=== PATIENT | male | born 1970 | race Caucasian/White ===

== ENCOUNTER 2024-07-02 12:50 | Emergency (ER) | payer MEDICAID, SELFPAY ==
[2024-07-02 12:51] VITALS: BP 148/84; PULSE 109; RESP 15; TEMP 36; O2SAT 99; BMI 23.6
--- NOTE | 2024-07-02 13:07 | VDLE_ITS ---
Reason For Study Reason For Study: Right leg swelling RIGHT LEFT GSV is normal. CFV is compressible, spontaneous, phasic, competent, CFV is compressible, spontaneous, phasic, competent and demonstrates normal augmentation. and demonstrates normal augmentation. FV is compressible, spontaneous, phasic, competent and demonstrates normal augmentation. POP V is compressible, spontaneous, phasic, competent and demonstrates normal augmentation. T/P Trunk is compressible. PTV is compressible. RT PerV is compressible. Procedure This is a venous duplex using B-mode, color flow and spectral Doppler. Exam performed in department. A preliminary report was called and/or faxed to Dr. Wilson. VL/Venous Duplex US, Unilateral Interpretation Summary Deep veins of the right lower extremity are patent and compressible segmentally . There is no evidence of right lower extremity deep vein thrombosis. Valvular competence appears intact within the p roximal deep venous system on the right . The right great saphenous vein appears patent and compressible segmentally. The left common femoral vein is patent and compressible . Ordering Physician: Henry Wilson Performed By: Collette Moyer RVT
--- NOTE | 2024-07-02 13:14 | ED.VIS.LOWEX ---
HPI History of Present Illness HPI Narrative: 54-year-old male history of some type of cardiac arrhythmia for which he is currently on no medications for. States that he has had atraumatic right lower leg swelling around the ankle and lower calf for about 4 days started on Friday. No prior history. No history of cellulitis. No fever or chills. No chest pain or shortness of breath. He has never had a DVT. No recent travel, surgery or immobilization. No recent hospitalization. Chief Complaint: Edema Informant: patient and spouse/S.O. Occured/Mechanism Mechanism/Context: No injury and No blunt trauma Onset/Context/Timing Onset: Days Context: Gradual Onset Timing: Continuous Quality of Pain: Dull Current Severity: Mild Maximum Severity: Mild Associated Symptoms Associated Symptoms: Negative for Parasthesia, Weakness or Loss of Funtion Narrative Narrative: 54-year-old male with atraumatic right lower leg pain and swelling for 4 days. No history of cellulitis. No prior history of DVT or PE risk factors. Prior similar symptoms: No Recent Illness/Hospitalization: No PFSH PFSH Medical History Arrhythmia Home Medications ?Medication ?Instructions ?Recorded ?Last Taken ?Type hydrocodone-acetaminophen 5-325mg 1 tab PO Q4H PRN PRN Pain ##20 11/19/13 Unknown Rx 5mg-325mg indomethacin 25 mg capsule 50 mg (2 x 25 mg) PO TIDCM ##20 11/19/13 Unknown Rx polyethylene glycol 3350 17 gram 17 g PO QHS #5 packets 01/03/14 Unknown Rx oral powder packet cephalexin 500 mg capsule 500 mg PO Q6 #40 CAPSULES 07/02/24 Unknown Rx Allergy/AdvReac Type Severity Reaction Status Date / Time No Known Allergies Allergy Verified 07/02/24 12:51 Social History Smoking Status: Current every day smoker tobacco type: cigarettes and e-cigarettes ROS ROS ED ROS Narrative Patient denies recent illness. Constitutional Constitutional ED: Denies chills or fever(s) Eyes Eyes: Denies blurry vision ENT ENT ED: Denies ear pain Cardiovascular Cardiovascular: Denies chest pain Respiratory/Chest Respiratory/Chest: Denies cough or dyspnea Gastrointestinal Gastrointestinal: Denies abdominal pain Genitourinary Genitourinary ED: Denies dysuria or hematuria Musculoskeletal Musculoskeletal: Denies arthralgias Integumentary Denies abscess or Abrasions Neurologic Neurologic: Denies headache(s) Psychiatric Psychiatric: Denies anxiety Endocrine Endocrinology: Denies polydipsia Hematologic/Lymphatic Hematologic/Lymphatic: Denies easy bleeding, easy bruising or lymphadenopathy Allergic/Immunologic Allergic/Immunologic ED: Denies mouth swelling, tongue swelling or urticaria EXAM Physical Exam Narrative Exam Narrative: Well-appearing middle-age male. Vital signs stable afebrile. No acute distress. Significant other present in the room. H EENT exam pupils round reactive light. Moist membranes. Neck nontender no lymphadenopathy. Lungs clear to auscultation bilaterally. Heart tachycardic 109 no murmur. Chest wall and ribs nontender. Abdomen soft nontender. Moving all 4 extremities. Right lower leg has mild edema at the distal half of the lower leg. Minimally tender. Really no significant redness. Only minimal warmth. Not classic for cellulitis. Normal DP pulse. Able to dorsi and plantarflexion bilaterally. Calf is nontender. There is no cords. There is no inguinal lymphadenopathy. There is no streaking or redness above the knee. Both lower extremities are neurovascularly intact. Neurologically she is awake and alert. Answering questions following commands. Const Vital Signs: 07/02/24 12:51 Temperature 96.8 F L Temperature Source Temporal Pulse Rate 109 H Respiratory Rate 15 Blood Pressure 148/84 H Blood Pressure Mean 105 Pulse Ox 99 Oxygen Delivery Method Room Air Positive well nourished and well developed; Negative for obese, cachectic, contractures or unkempt General Appearance ED: well developed; Negative for unkempt, cachectic or contractures Nutritional Appearance: Negative for cachectic or obese HEENT Reports moist mucous membranes normocephalic and atraumatic Eyes PERRL Neck full ROM and supple Chest Wall inspection of chest normal and palpation of chest normal Resp normal respiratory effort, no retractions and clear to auscultation bilaterally Auscultation: Negative for rales, rhonchi, wheezes or diminished lung sounds Cardio regular rhythm, S1 normal heart sound, S2 normal heart sound and no murmurs; Negative for regular rate Rate: tachycardic GI non-tender, non-distended and no masses Inspection: Negative for abdominal distention Auscultation: normoactive bowel sounds Palpation: soft; Negative for tender, guarding or rebound tenderness present Back/Spine no CVA tenderness General Back: Negative for CVA tenderness or swelling Cervical Spine: Negative for cervical spine tenderness Thoracic Spine / Upper Back: Negative for thoracic spinal tenderness Lumbar Spine / Lower Back: Negative for lumbar spinal tenderness Extremity full ROM; Negative for normal to inspection Extremity Narrative: Right lower extremity lower edema at the distal third of the lower leg ankle. Neurovascular intact. Not hot. Only minimally tender. No lymphangitic streaking. No inguinal lymphadenopathy. Looks more like edema than cellulitis. There is no calf tenderness or cord. Normal DP pulse. General Extremety ED: Yes edema; Negative for cyanosis General Extremity: edema; Negative for cyanosis Neuro oriented x3, CN's II-XII intact bilaterally, moves all extremities and no sensory deficits noted Sensorium / Orientation: alert, oriented to person, oriented to place and oriented to time; Negative for orientation impaired, confused, lethargic or stuporous Psych mental status grossly normal Appearance: Negative for unkempt Mood & Affect: Negative for anxious Skin no wounds Lesions: no lesions Rashes: no rashes Trauma: Negative for abrasion, laceration or puncture MDM MDM MDM Narrative Medical decision making narrative: 54-year-old male with atraumatic right lower leg swelling. Rule out DVT PE versus cellulitis versus venous insufficiency or other. Ultrasound and labs. I will do an EKG due to this history of dysrhythmia. Repeat exam patient is doing well at 2:51 PM. No change. We discussed his test results. This to be treated as a cellulitis. He will be given a dose of Keflex here. Placed on Keflex 5 mg 4 times daily for 10 days. Follow-up with his primary care physician. Return if worse. He and his are comfortable with the plan. History & Record Review Discussion w/independent historian: Patient Additional record(s) reviewed:: Prior inpatient record, Prior outpatient record, Prior ED visit and Prior labs Lab Data Attestation: I reviewed the patient's lab results. Lab results narrative: Venous ultrasound assay of the right lower extremity was negative. No DVT per the perinatal technician. CBC shows an elevated white count of 14.3. H&H 15 and 45. Platelets 403. Electrolytes unremarkable. Gap 10. Normal BUN of 14 creatinine 0.99. Glucose 109. Labs: Laboratory Results - last 24 hr 07/02/24 13:21 WBC 14.3 H RBC 5.28 Hgb 15.0 Hct 45.1 MCV 85.4 MCH 28.4 MCHC 33.3 RDW Std Deviation 42.3 RDW Coeff of Betsy 13.4 Plt Count 403 MPV 9.0 Immature Gran % (Auto) 0.300 Neut % (Auto) 78.9 H Lymph % (Auto) 11.5 L [place] % (Auto) 6.4 Eos % (Auto) 2.4 Baso % (Auto) 0.5 Absolute Neuts (auto) 11.3 H Absolute Lymphs (auto) 1.64 Nucleated RBC % 0 Sodium 138 Potassium 4.1 Chloride 102 Carbon Dioxide 26.0 Anion Gap 10 BUN 14 Creatinine 0.99 Estim Creat Clear Calc 89.10 Est GFR (MDRD) Non-Af 91 BUN/Creatinine Ratio 14.1 Glucose 109 H Calcium 9.7 Rhythm Strip Rhythm Strip: Sinus Rhythm Rate: 81 Ectopy: None EKG Initial EKG: Attestation: I personally reviewed and interpreted this EKG as follows: Interpretation: Sinus Rhythm and No Acute Injury Pattern Comments: Normal sinus rhythm rate 81. No acute signs of RI or ischemia. No change from prior. Discharge Plan Triage Chief Complaint: Edema ED Provider: Henry Wilson Dx/Rx/DC Orders Clinical Impression: Cellulitis Instructions: ED Cellulitis Prescriptions: New cephalexin 500 mg capsule 500 mg PO Q6 Qty: 40 0RF No Action hydrocodone-acetaminophen 1 TABLET tablet 1 tab PO Q4H PRN PRN (Reason: Pain) Qty: 20 0RF indomethacin 25 MG capsule 50 mg PO TIDCM Qty: 20 0RF polyethylene glycol 3350 17 GM powder in packet 17 g PO QHS Qty: 5 0RF Primary Care Provider: Care Physician,No Primary Referrals: Lul Dale MD [Med Staff - [employer] Agent] - As soon as possible Care Physician,No Primary [Primary Care Provider] - Activity Restrictions/Additional Instructions: There is no signs of a blood clot in your leg. This appears to be an infection of the skin called cellulitis. He will be started on antibiotic Keflex. 1 pill 4 times a day. Once you get it filled try to get 2 more dosages in today. Follow-up with your doctor if not improving return if a lot worse or you develop a fever if it spreads up your leg or you are feeling worse. Motrin and Tylenol for pain. Print Language: Estonian Disposition Disposition: Home, Self Care
--- NOTE | 2024-07-02 13:22 | EKG12_ITS ---
Test Reason : ARRYTH Blood Pressure : */* mmHG Vent. Rate : 81 BPM Atrial Rate : 81 BPM P-R Int : 120 ms QRS Dur : 100 ms QT Int : 358 ms P-R-T Axes : 78 81 65 degrees QTcB Int : 415 ms Normal sinus rhythm Normal ECG Confirmed by NELLA LOVE, LAM ([id number]), photo editor OLAMIDE BARTON ([id number]) on 07/05/2024 8:41:59 AM Referred By: Henry Wilson Confirmed By: LAM CARMEN MD
[2024-07-02 13:34] LABS: Absolute Lymphocyte Count 1.64 X10^3/uL (0.83-4.51); Absolute Neutrophil Count 11.3 X10^3/uL (2.0-7.7); Basophil# 0.07 X10^3/uL; Basophil% 0.5 % (0-1); Eosinophil# 0.34 X10^3/uL; Eosinophils% 2.4 % (0-5); Hematocrit 45.1 % (40-54); Lymphocyte # 1.64 X10^3/ul (0.83-4.51); Lymphocyte % 11.5 % (19-41); Mean Corp Hgb Conc 33.3 g/dL (32-36); Mean Corpuscular Hgb 28.4 pg (27.0-32.0); Mean Corpuscular Volume 85.4 fL (80-94); Monocyte# 0.92 X10^3/uL; Monocyte% 6.4 % (0-10); NRBC Flagged by Analyzer 0 % (0-5); Neutrophil # 11.26 X10^3/uL (2.7-7.7); Neutrophil % 78.9 % (47-70); Platelet Count 403 K/mm3 (150-450); RBC Distribution Width CV 13.4 % (11.6-14.6); RBC Distribution Width SD 42.3 fl (35.1-43.9); Red Blood Count 5.28 M/mm3 (4.6-6.2); White Blood Count 14.3 K/mm3 (4.4-11.0)
[2024-07-02 13:49] LABS: Anion Gap 10 (5-15); BUN 14 mg/dL (4-19); BUN/Creat Ratio 14.1 RATIO (10-20); Calcium,Total 9.7 mg/dL (7.6-11.0); Chloride 102 mmol/L (98-108); Creatinine, Serum 0.99 mg/dL (0.70-1.20); EST Glomerular Filtration Rate 91 (>60); Glucose 109 mg/dL (70-99); Potassium 4.1 mmol/L (3.3-5.1); Sodium Level 138 mmol/L (133-145)
[2024-07-02] MEDS: Cephalexin 250 MG Capsule 500 MG PO (15:11)
== END 2024-07-02 15:18 | disposition home or self-care (01) ==
PROVIDERS: Emergency Provider Emergency Medicine; Referring Provider Emergency Medicine; Visit Provider Emergency Medicine
DX: L03.115 Cellulitis of right lower limb (principal); F17.210 Nicotine dependence, cigarettes, uncomplicated; F17.290 Nicotine dependence, other tobacco product, uncomplicated; Z79.899 Other long term (current) drug therapy
CPT/HCPCS: 80048; 85025; 93005; 93971; 99283; A4216

== ENCOUNTER 2024-08-26 17:01 | Emergency (ER) | payer MEDICAID, SELFPAY ==
[2024-08-26 17:02] VITALS: BP 159/132; PULSE 119; RESP 16; TEMP 36.8; O2SAT 98; BMI 22.8
[2024-08-26 17:03] VITALS: BP 159/132; PULSE 110; RESP 16; TEMP 36.8; O2SAT 98
--- NOTE | 2024-08-26 18:00 | EX.ED.DYSGE1 ---
HPI History of Present Illness Chief Complaint: Cellulitis Informant: patient Onset/Context/Timing Onset: Weeks (1) Context: Gradual Onset Timing: Continuous Quality: Dull, sharp, burning Location: Right lower leg Worsened by: Weightbearing Relieved by: Nothing Narrative Narrative: Patient presents with redness and swelling to his right lower leg that has been getting worse over the past week. Patient describes the pain as dull, burning, and sharp. Patient states he has had cellulitis in the past. Patient states he was given a prescription for Keflex. Patient states that this cleared up his cellulitis. Patient states that it started to return again last week. Patient states his pain is worse with any weightbearing. Patient states nothing helps with it. Patient denies any fevers or chills. Patient denies any new trauma or injury. [facility] Medical History Arrhythmia Home Medications ?Medication ?Instructions ?Recorded ?Last Taken ?Type cephalexin 500 mg capsule 500 mg PO Q6 #40 CAPSULES 08/26/24 Unknown Rx Allergy/AdvReac Type Severity Reaction Status Date / Time No Known Allergies Allergy Verified 08/26/24 17:03 Social History Smoking Status: Current every day smoker tobacco type: cigarettes and e-cigarettes ROS ROS ED Constitutional Constitutional ED: Denies chills or fever(s) Eyes Eyes: Denies blurry vision or change in vision ENT ENT ED: Denies rhinorrhea or sore throat Cardiovascular Cardiovascular: Denies chest pain or palpitations Respiratory/Chest Respiratory/Chest: Denies cough or dyspnea Gastrointestinal Gastrointestinal: Denies nausea or vomiting Genitourinary Genitourinary ED: Denies dysuria or hematuria Musculoskeletal Musculoskeletal: Denies back pain or neck pain Integumentary Denies abscess or rash Neurologic Neurologic: Denies headache(s) or weakness Allergic/Immunologic Allergic/Immunologic ED: Denies mouth swelling or urticaria EXAM Physical Exam Const Vital Signs: 08/26/24 17:02 08/26/24 17:03 08/26/24 19:12 Temperature 98.3 F 98.3 F 98 F Temperature Source Oral Oral Oral Pulse Rate 119 H 110 H 76 Respiratory Rate 16 16 16 Blood Pressure 159/132 H 159/132 H 118/85 H Blood Pressure Mean 141 141 96 Pulse Ox 98 98 100 Oxygen Delivery Method Room Air Room Air Room Air 08/26/24 20:00 08/26/24 20:34 Temperature 98 F 98 F Temperature Source Oral Pulse Rate 67 70 Respiratory Rate 18 18 Blood Pressure 122/79 H 132/79 H Blood Pressure Mean 93 96 Pulse Ox 99 100 Oxygen Delivery Method Room Air Positive well nourished and well developed General Appearance ED: well developed and NAD HEENT Reports moist mucous membranes Neck supple and no JVD Neuro oriented x3, CN's II-XII intact bilaterally and no sensory deficits noted Sensorium / Orientation: alert Motor Exam: strength 5/5 throughout Psych mental status grossly normal Skin Skin Narrative: There is erythema and warmth over the right lower leg. There is no discharge or drainage. There are no vesicles or pustules. There is no evidence of any abscess. Pulses are equal bilaterally. Sensation was intact to light touch in all digits. Capillary refill was less than 2 seconds in all digits. There is good range of motion. MDM MDM MDM Narrative Medical decision making narrative: Patient was advised that this does not look like it is cellulitis again. Patient was given a dose of Ancef here. CBC will be obtained to assess for leukocytosis and anemia. Basic metabolic profile will be obtained to assess for electrolyte abnormality and renal function. Blood cultures will be obtained to assess for sepsis. Lab Data Attestation: I reviewed the patient's lab results. Lab results narrative: CBC was reviewed and was within normal limits. Basic metabolic profile was reviewed and was within normal limits. Labs: Laboratory Results - last 24 hr 08/26/24 19:00 WBC 9.4 RBC 5.47 Hgb 15.5 Hct 48.0 MCV 87.8 MCH 28.3 MCHC 32.3 RDW Std Deviation 43.5 RDW Coeff of Betsy 13.5 Plt Count 376 MPV 9.1 Immature Gran % (Auto) 0.300 Neut % (Auto) 73.2 H Lymph % (Auto) 15.1 L [place] % (Auto) 6.7 Eos % (Auto) 4.0 Baso % (Auto) 0.7 Absolute Neuts (auto) 6.9 Absolute Lymphs (auto) 1.43 Nucleated RBC % 0 Sodium 136 Potassium 4.0 Chloride 100 Carbon Dioxide 25.9 Anion Gap 11 BUN 12 Creatinine 0.96 Estim Creat Clear Calc 90.92 Est GFR (MDRD) Non-Af 95 BUN/Creatinine Ratio 13.0 Glucose 97 Calcium 9.9 Treatment and Re-Evaluation :: Patient was given a dose of Ancef here. Patient was advised of his findings. Patient was given a prescription for Keflex. Patient was instructed to follow-up with his primary care physician in 5 to 7 days. Patient was instructed to return if worse in any way. Patient understood and was agreeable with the plan. All questions were answered. Discharge Plan Triage Chief Complaint: Cellulitis ED Provider: Reyes Sewell Dx/Rx/DC Orders Clinical Impression: Cellulitis of right lower leg, Elevated blood pressure reading without diagnosis of hypertension Instructions: ED Cellulitis Prescriptions: New cephalexin 500 mg capsule 500 mg PO Q6 Qty: 40 0RF Primary Care Provider: Care Physician,No Primary Referrals: Tsering Garrido MD [Med Staff - Active Staff] - 5-7 Days Care Physician,No Primary [Primary Care Provider] - Print Language: [place] Islander Disposition Disposition: Home, Self Care
[2024-08-26 19:12] VITALS: BP 118/85; PULSE 76; RESP 16; TEMP 36.6; O2SAT 100
[2024-08-26 19:26] LABS: Anion Gap 11 (5-15); BUN 12 mg/dL (4-19); Calcium,Total 9.9 mg/dL (7.6-11.0); Carbon Dioxide 25.9 mmol/L (21.0-32.0); Chloride 100 mmol/L (98-108); Creatinine, Serum 0.96 mg/dL (0.70-1.20); EST Glomerular Filtration Rate 95 (>60); Estimated Creatinine Clearance 90.92 ml/min (50-250); Glucose 97 mg/dL (70-99); Sodium Level 136 mmol/L (133-145)
[2024-08-26 19:30] LABS: Absolute Lymphocyte Count 1.43 X10^3/uL (0.83-4.51); Absolute Neutrophil Count 6.9 X10^3/uL (2.0-7.7); Basophil# 0.07 X10^3/uL; Basophil% 0.7 % (0-1); Eosinophil# 0.38 X10^3/uL; Hemoglobin 15.5 g/dL (13.0-16.5); Lymphocyte # 1.43 X10^3/ul (0.83-4.51); Lymphocyte % 15.1 % (19-41); Mean Corp Hgb Conc 32.3 g/dL (32-36); Mean Corpuscular Hgb 28.3 pg (27.0-32.0); Mean Corpuscular Volume 87.8 fL (80-94); Mean Platelet Vol. 9.1 fl (6.2-12.0); Monocyte# 0.63 X10^3/uL; Monocyte% 6.7 % (0-10); NRBC Flagged by Analyzer 0 % (0-5); Neutrophil % 73.2 % (47-70); Platelet Count 376 K/mm3 (150-450); RBC Distribution Width CV 13.5 % (11.6-14.6); RBC Distribution Width SD 43.5 fl (35.1-43.9); Red Blood Count 5.47 M/mm3 (4.6-6.2); White Blood Count 9.4 K/mm3 (4.4-11.0)
[2024-08-26] MEDS: Cefazolin 1 GM/50 ML BAG IV (19:49)
[2024-08-26 20:00] VITALS: BP 122/79; PULSE 67; RESP 18; TEMP 36.6; O2SAT 99
[2024-08-26 20:34] VITALS: BP 132/79; PULSE 70; RESP 18; TEMP 36.6; O2SAT 100
== END 2024-08-26 20:53 | disposition home or self-care (01) ==
PROVIDERS: Emergency Provider Emergency Medicine; Visit Provider Emergency Medicine
DX: L03.115 Cellulitis of right lower limb (principal); R03.0 Elevated blood-pressure reading, without diagnosis of hypertension; F17.210 Nicotine dependence, cigarettes, uncomplicated
CPT/HCPCS: 80048; 85025; 87040; 96365; 99282

== ENCOUNTER → 2025-02-02 | Outpatient (CLI) | payer MEDICAID, SELFPAY ==
--- NOTE | 2025-02-02 12:56 | CT_ITS ---
PROCEDURE: LIMITED CHEST CT CARDIAC ONLY 02/02/2025 REASON FOR EXAM: CP on exertion. TECHNIQUE: Procedure Code: [id number] Modality: CT Procedure: LIMITED CHEST CT CARDIAC ONLY One or more dose reduction techniques were used (e.g., Automated exposure control, adjustment of the mA and/or kV according to patient size, use of iterative reconstruction technique). RADIATION DOSE SUMMARY: DLP: 1468.48 mGycm COMPARISON: None. CT/Limited Chest CT Cardiac Only IMPRESSION: Relatively severe pulmonary emphysema is noted. Limited imaging of the lungs demonstrates no acute process. No pleural effusion or pneumothorax is seen in visualized areas. No adenopathy is noted. The visualized upper abdomen demonstrates no significant abnormality. Reading Location: [place] [id number]
[2025-02-02 13:02] VITALS: BP 124/96; PULSE 90; RESP 16; O2SAT 97; BMI 23.6
[2025-02-02 13:12] VITALS: BP 119/85; PULSE 83
[2025-02-02 13:22] VITALS: PULSE 74
[2025-02-02] MEDS: Nitroglycerin SL (ED/IMG/CATH) 0.4 MG TABLET SL (13:22)
[2025-02-02 13:35] VITALS: BP 101/66; PULSE 73; RESP 16; O2SAT 94
--- OUTSIDE RECORDS SUMMARY | 2025-02-02 14:36 | XMS RPT_ITS | CCD ---
Author Organization [facility] Care Team Providers Care Wireless Sales Consultant Name Role Phone RODRIGUEZ, KENY DO Unavailable Unavailable RODRIGUEZ, KENY DO Unavailable Unavailable NO, DOCTOR ON Unavailable Unavailable RODRIGUEZ, KENY DO Unavailable Unavailable NO, DOCTOR ON Unavailable Unavailable RODRIGUEZ, KENY DO Unavailable Unavailable RODRIGUEZ, KENY DO Unavailable Unavailable NO, DOCTOR ON Unavailable Unavailable RODRIGUEZ, KENY DO Unavailable Unavailable NO, DOCTOR ON Unavailable Unavailable PIPO, GILBERT E Unavailable Unavailable PIPO, GILBERT E Unavailable Unavailable PIPO, GILBERT E Unavailable Unavailable NO, DOCTOR ON Unavailable Unavailable RUIZ, DENNYS C Unavailable Unavailable RUIZ, DENNYS C Unavailable Unavailable NO, DOCTOR ON Unavailable Unavailable RUIZ, DENNYS C Unavailable Unavailable NO, DOCTOR ON Unavailable Unavailable Unavailable Primary Care Provider Unavailabl e Care Physician, No Primary Primary Care Provider Unavailable Dr. Henry Wilson MD Referring Provider Dr. Henry Wilson MD Emergency Provider [phone] Dr. Henry Wilson MD Attending Provider Dr. Nicholas Huerta MD Attending Provider Dr. Reyes Sewell DO Emergency Provider SHAYY CLOTH CLASSER-TRAPEZE PERFORMER, BRIAN Primary Care Physician [phone] BALTES CLOTH CLASSER-TRAPEZE PERFORMER, BRIAN Attending Unavailabl e BALTES CLOTH CLASSER-TRAPEZE PERFORMER, BRIAN Primary Care Unavailabl e BALTES CLOTH CLASSER-TRAPEZE PERFORMER, BRIAN Attending Unavailabl e BALTES CLOTH CLASSER-TRAPEZE PERFORMER, BRIAN Primary Care Unavailabl e Care Physician, No Primary Primary Care Provider Unavailable Dr. Reyes Sewell DO Attending Provider Shayy FIRST LEVELER-C, Brian Primary Care Provider Shayy FIRST LEVELER-C, Brian Referring Provider [phone] Mateusz LOVE, Dr. Allen Attending Provider Brian Lucas Referring Unavailable Santos Avalos Attending Unavailable Baltes, Brian Primary Care Unavailable Baltes, Brian Referring Unavailable Baltes, Brian Primary Care Unavailable Mateusz, Tiffany Attending Unavailable Baltes, Brian Primary Care Unavailable Baltes, Brian Referring Unavailable Mateusz, Tiffany Attending Unavailable Henry Wilson Referring Unavailable Care Physician, No Primary Primary Care Unava ilable Henry Wilson Attending Unavailable Care Physician, No Primary Primary Care Unava ilable Reyes Sewell Attending Unavailable Mateusz, Tiffany Attending Unavailable Mateusz, Tiffany Referring Unavailable Baltes, Brian Primary Care Unavailable Baltes, Brian Primary Care Unavailable Mateusz, Tiffany Attending Unavailable Mateusz, Tiffany Referring Unavailable Medications Current Medications Medication Drug Class(es) Dates Sig (Normalized) Sig (Original) acetaminophen 500 mg oral tablet (3 sources) Start: 11-01-2024 take 2 tablets by mouth three times daily as needed for pain Acetaminophen 500 mg tablet Active 1000 mg PO 3 times daily as needed for fever or pain November 01, 2024 12:00am Start: 09-01-2024 acetaminophen 500 mg oral tablet Dose : 1,000 mg = 2 tab(s), Oral, TID, PRN pain or fever, 0 Refill(s) Start Date: 09/01/24 Status: Ordered Repeat number: 1 [id number] 200 actuat albuterol 0.09 mg/actuat metered dose inhaler (2 sources) beta2-Adrenergic Agonist Start: 11-16-2024 Albut harvinder Sulfate 90 mcg/actuation HFA aerosol inhaler Active 2 NMA INHALATION Q4H as needed November 16, 2024 10:09am Start: 11-16-2024 End: 11-16-2024 Albuterol Sulfate 90 mcg/act uation HFA aerosol inhaler Discontinued INHALATION November 16, 2024 12:00am November 16, 2024 10:10am aspirin 81 mg delayed release oral tablet (1 source) Platelet Aggregation Inhibitor, Nonsteroidal Anti-inflammatory Drug Start: 11-16-2024 Aspirin (Adult Lo w Dose Aspirin) 81 mg tablet,delayed release (DR/EC) Active 81 mg PO daily November 16, 2024 12:00am Budesonide-Formo terol (2 sources) Corticosteroid, beta2-Adrenergic Agonist Start: 11-16-2024 Budesonide-Form oterol (Symbicort) 160-4.5 mcg/actuation HFA aerosol inhaler Active 2 NMA INHALATION THREE TIMES A DAY November 16, 2024 10:10am Start: 11-16-2024 End: 11-16-2024 Budesonide-Formoterol (Symbi alexander) 160-4.5 mcg/actuation HFA aerosol inhaler Discontinued INHALATION November 16, 2024 12:00am November 16, 2024 10:10am doxycycline hyclate 100 mg oral tablet (1 source) Tetracycline-class Drug Start: 05-05-2023 End: 05-12-2023 take 1 tablet by mouth twice daily doxycycline (VIBRA-TABS) 100 mg tablet Take 1 tablet by mouth two times a day for 7 days. 14 tablet 0 05/05/2023 05/12/2023 Active Comment on above: Take 1 tablet by arnoldo th two times a day for 7 days. losartan potassium 25 mg oral tablet (1 source) Angiotensin 2 Receptor Mendez Start: 11-01-2024 take 1 tablet by mouth once daily Losartan 25 mg tablet Active 25 mg PO daily November 01, 2024 12:00am 24 hr metoprolol succinate 25 mg extended release oral tablet (1 source) beta-Adrenergic Mendez Start: 11-16-2024 take 1 tablet by mouth once daily Metoprolol Succinate 25 mg tablet extended release 24 hr Active 25 mg PO daily November 16, 2024 12:00am mupirocin 0.02 mg/mg topical ointment (1 source) RNA Synthetase Inhibitor Antibacterial Start: 05-05-2023 End: 05-12-2023 mupirocin (BACTROBAN) 2 % ointment Apply to affected area three times a day for 7 days. 22 g 0 05/05/2023 05/12/2023 Active Comment on above: Apply to affected ar ea three times a day for 7 days. naproxen sodium 220 mg oral tablet (1 source) Nonsteroidal Anti-inflammatory Drug Start: 11-01-2024 take 1 tablet by mouth every eight hours as needed for pain Naproxen Sodium 220 mg tablet Active 220 mg PO Q8H as needed for pain November 01, 2024 12:00am Completed/Discontinued Medications Medication Drug Class(es) Dates Sig (Normalized) Sig (Original) acetaminophen 325 mg / HYDROcodone bitartrate 5 mg oral tablet (3 sources) Opioid Agonist Start: 11-19-2013 End: 08-26-2024 Hydrocodone-Acetam inophen 1 TABLET tablet Discontinued 1 {tbl} PO EVERY 4 HOURS NEEDED as needed for Pain 20 November 19, 2013 12:00am August 26, 2024 7:14pm cephalexin 500 mg oral capsule (7 sources) Cephalosporin Antibacterial Start: 07-02-2024 End: 11-16-2024 cephalexin 500 mg oral capsule Dose : 500 mg = 1 cap(s), Oral, QID, # 40 cap(s), 0 Refill(s) Start Date: 09/01/24 Stop Date: 09/11/24 Status: Ordered Quantity: 40.0 Unit: cap(s) Repeat number: 1 ibuprofen 600 mg oral tablet (1 source) Nonsteroidal Anti-inflammatory Drug Start: 05-02-2014 take 1 tablet by mouth every six hours as needed ibuprofen (MOTRIN) 600 mg tablet Take 1 tablet by mouth every 6 hours as needed. FOR PAIN. 0 05/02/2014 Active Comment on above: Take 1 tablet by arnoldo th every 6 hours as needed. FOR PAIN. indomethacin 25 mg oral capsule (3 sources) Nonsteroidal Anti-inflammatory Drug Start: 11-19-2013 End: 08-26-2024 take 2 capsules by mouth three times daily at mealtime Indomethacin 25 MG capsule Discontinued 50 mg PO 3 TIMES DAILY WITH MEALS November 19, 2013 12:00am August 26, 2024 7:14pm meloxicam 15 mg oral tablet (1 source) Nonsteroidal Anti-inflammatory Drug Start: 05-02-2014 take 1 tablet by mouth once daily meloxicam (MOBIC) 15 mg tablet Take 1 tablet by mouth once daily. 30 tablet 2 05/02/2014 Active Comment on above: Take 1 tablet by arnoldo th once daily. polyethylene glycol 3350 81880 mg powder for oral solution (3 sources) Osmotic Laxative Start: 01-03-2014 End: 08-26-2024 take 17 g by mouth at bedtime Polyethylene Glycol 3350 17 GM powder in packet Discontinued 17 g PO AT BEDTIME January 03, 2014 12:00am August 26, 2024 7:14pm Problems Active Problems Problem Classification Problem Date Documented Da te Episodic/Chronic Cardiac dysrhythmias (2 sources) Cardiac arrhythmia; Translations: [Cardiac arrhythmia, unspecified] Onset: 11-16-2024 11-16-2024 Chronic Chronic obstructive pulmonary disease and bronchiectasis (4 sources) Moderate chronic obstructive pulmonary disease; Translations: [Chronic obstructive pulmonary disease, unspecified] Onset: 11-16-2024 11-01-2024 Chronic Congestive heart failure; nonhypertensive (2 sources) Heart failure with reduced ejection fraction; Translations: [Unspecified systolic (congestive) heart failure] Onset: 11-16-2024 11-01-2024 Chronic Nonspecific chest pain (4 sources) Chest pain on exertion; Translations: [Chest pain, unspecified] Onset: 11-16-2024 11-16-2024 Episodic Other and ill-defined heart disease (2 sources) Left ventricular systolic dysfunction; Translations: [Other ill-defined heart diseases] 11-16-2024 Chronic Other and ill-defined heart disease (2 sources) Other ill-defined heart diseases; Translations: [Other ill-defined heart diseases] Onset: 11-16-2024 Chronic Other circulatory disease (2 sources) Elevated blood-pressure reading without diagnosis of hypertension; Translations: [Elevated blood-pressure reading, without diagnosis of hypertension] 08-26-2024 Episodic Other ear and sense organ disorders (2 sources) Cellulitis of both external ears 09-01-2024 Episodic Comment on above: shraddha Other ear and sense organ disorders (1 source) Otitis externa; Translations: [Cellulitis of external ear, bilateral] 11-01-2024 Episodic Other nervous system disorders (1 source) Piriformis syndrome; Translations: [Lesion of sciatic nerve, unspecified lower limb] Onset: 05-02-2014 05-02-2014 Chronic Other skin disorders (1 source) Folliculitis; Translations: [Follicular disorder, unspecified] 05-05-2023 Episodic Substance-related disorders (3 sources) Nicotine dependence; Translations: [Nicotine dependence, unspecified, uncomplicated] Onset: 11-16-2024 11-16-2024 Chronic Past or Other Problems Problem Classification Problem Date Documented Da te Episodic/Chronic Other connective tissue disease (1 source) Other specified soft tissue disorders; Translations: [Other specified soft tissue disorders] Onset: 10-14-2024 Episodic Other non-traumatic joint disorders (1 source) Pain in right knee; Translations: [Pain in joint, lower leg] Onset: 05-02-2014 05-02-2014 Episodic Skin and subcutaneous tissue infections (6 sources) Cellulitis; Translations: [Cellulitis, unspecified] Onset: 10-14-2024 07-02-2024 Episodic Results Test Name Value Interpretation Reference Range Facility Cardiology Visit Reporton Cardiology Visit Report [facility] [address] [place] [address] OFFICE VISIT Date of Service: 11/16/24 MR#: [id number] Acct: [id number] Name: WENDI GRAHAM Rep #: [id number] : 1970 Provider: Dr. Tiffany Child MD Age/Sex: 54/M Location: [facility] Status: Signed HPI HPI History of Present Illness Details: This gentleman has past medical history significant for nicotine dependence and COPD. For the past couple of years, he has been experiencing anterior chest tightness with shortness of breath on moderate exertion. This is relieved with rest. No radiation to the arm neck or jaw. No rest symptoms. No diaphoresis. He recently has had a pharmacological stress test and for the symptoms. The stress test was reported as showing no ischemia however his LVEF was reported as 41% on gated images. Subsequently he has been referred to us for further evaluation and management. Denies orthopnea or PND. Occasional ankle edema. Per patient, he has been told in the past that he has had 2 heart attacks. No history of coronary angiography. Intake Vital Signs 08/26/24 17:02 11/16/24 10:06 Height 5 ft 10 in 5 ft 10 in Weight: 158 lb BMI 22.6 BP 113/70 Blood Pressure Location Lt brachial Position Sitting Respiration 18 Pulse 83 Pulse Source Monitor Intake Visit Reasons: HFrEF (Baltes) Director Business Required: No Accompanied by: Self Is patient in pain?: No Allergies No Known Allergies Allergy (Verified 08/26/24 17:03) Medications ???Medication ???Instructions ???Recorded ???Confirmed ???Type acetaminophen 500 mg tablet 1,000 mg PO 3XD PRN fever or pain 11/01/24 11/01/24 History losartan 25 mg tablet 25 mg PO QDAY 11/01/24 11/01/24 Hi story naproxen sodium 220 mg tablet 220 mg PO Q8H PRN pain 11/01/24 History albuterol sulfate 90 mcg/actuation 2 puff inhalation Q4H PRN 11/16/24 History aerosol inhaler budesonide-formoter ol HFA 160 2 inh inhalation TID 11/16/2405/11 History mcg-4.5 mcg/actuation aerosol inhaler (Symbicort) Ejection fraction %: 41 Have you fallen in the past year?: No PFSH Medical History (Updated 11/16/24 @ 10:[address] Tiffany Child MD) Cellulitis of external ear, bilateral Moderate COPD (chronic obstructive pulmonary disease) Heart failure with reduced ejection fraction Arrhythmia Family History (Updated 11/01/24 @ 12:11 by Milagros Mclaughlin LPN) Mother Alzheimer's dementia Melanoma of skin Grandmother COPD (chronic obstructive pulmonary disease) Father Colon cancer Social History (Updated 11/01/24 @ 12:08 by Milagros Mclaughlin LPN) Smoking Status: Light Smoker (<10/day) alcohol intake: former substance use type: former substance user, marijuana, crack/cocaine and amphetamines ROS Const Const: Positive for fatigue; Negative for weakness Eyes Eyes: Negative for change in vision ENT ENT: Negative for dizziness or balance problems Cardio Chest Pain: Yes Frequency: weekly Character: tightness Duration: minutes Palpitations: Yes feels like its: pounding Edema: Right (occ) Resp Respiratory: Positive for SOB with activity; Negative for SOB at rest or SOB orthopnea SOB lying down GI GI: Positive for heartburn (occ); Negative nausea Musc Musc: Negative for balance problems Neuro Neuro: Positive for lightheadedness (occ standing too fast); Negative for dizziness, near syncope, syncope or weakness Endo Endo: Positive for fatigue Cardiology Exam Const Appearance: comfortable and no acute distress Nutritional Appearance: well nourished Neck Neck: no JVD Carotids: Negative bruit Chest Auscultation: Bilateral: Diminished Lung Sounds Cardio Rate: regular rate Rhythm: regular rhythm Heart sounds: S1 normal and S2 normal Neuro General: patient alert, patient awake and patient oriented x3 Extremities Lower Extremity Edema: None: Bilateral Supplemental Info Supplemental Information Labs: No Data to Display Diagnostics: Electrocardiogram Abdomen/Pelvis CT Venous Doppler Study Pulmonary: No Data to Display Past Visits: Cardiology Visit 11/16/24 Assessment and Plan Assessment and Plan (1) Chest pain on exertion: Status: Chronic Plan: No ischemia reported on pharmacological stress test however ischemic heart disease remains a possibility. Discussed further evaluation with patient. Conventional coronary angiography versus CT angiography discussed. At this point in time, patient wishes to have coronary CT angio first. Will refer. Start enteric-coated aspirin 81 mg daily. Metoprolol extended release 25 mg daily. Check lipid panel. (2) Left ventricular systolic dysfunction (LVSD): Status: Acute Plan: LVEF reported at 41% on (more content not included)... Normal [facility] NM MYOCARDIAL SPECT STRESS/R ESTon 09-16-2024 NM MYOCARDIAL SPECT STRESS/REST ORIGINAL NM MYOCARDIAL SPECT STRESS/REST CLINICAL STATEMENT: Chest pain/anginal equiv, high CAD risk, not treadmill candidate TECHNIQUE: Lexiscan dose: 0.4 mg Radiopharmaceutical (stress): Tc-99m Sestamibi Dose:26.9 mCi Radiopharmaceutical (rest): Tc-99m Sestamibi Dose:8.3 mCi SPECT acquisition and processing Reconstruction and reorientation of SPECT images into short axis, vertical and horizontal long axis planes Quantitative LVEF assessment COMPARISON:No previous study REPORT: The overall quality of the study is poor. Review of raw imaging demonstrates no significant motion during stress and rest image acquisition. Low-dose CT scan demonstrates no significant thoracic aortic or coronary artery calcifications. No significant extracardiac finding. Review of the SPECT perfusion images shows decreased radiotracer uptake of the inferior wall, oval corrected and attenuation corrected images during both rest and stress images. Decreased radiotracer uptake of the inferior wall is worse in stress images. Gated SPECT images shows that the LEFT ventricle is normal in size but reduced systolic function. The LVEF is 41% . Mild global hypokinesia. Transient ischemic dilatation (TID) Ratio-1.12 IMPRESSION: Technically challenging study. Within limitation of the study, no significant scar or ischemia LEFT ventricular systolic function is reduced with mild global hypokinesia. Calculated LVEF 41%. No previous studies available for comparison. EKG portion will be dictated separately. Interpreted By: Camron Gerber MD Preliminary Report By: Ela Ashley Electronically Signed By: Camron Gerber MD Dictated Date: 09/16/2024 11:20:57 AM Prelim Date: 09/16/2024 11:28:00 AM Sign Date: 09/16/2024 1:39:38 PM Ordering Provider:Brian Baltes [facility] MAIN Culture, Blood (WB)on 2024 CUB Blood cultures x2, from two different sites No growth in 5 days. Normal [facility] Comment on above: Performed By: #### M 200.1000 #### [facility] [address] [place], [address] Absolute lymphocyte countOrd ered By: Reyes Sewell on 08-26-2024 Lymphocytes Auto (Unsp spec) [#/Vol] 1.43 10*3/uL 0.83-4.51 [facility] Absolute neutrophil countOrd ered By: Reyes Sewell on 08-26-2024 Neutrophils (Bld) [#/Vol] 6.9 10*3/uL 2.0-7.7 [facility] Anion gap in Serum or Plasma Ordered By: Reyes Sewell on 08-26-2024 Anion gap [Moles/Vol] 11 mmol/L 5-15 [facility] Automated blood erythrocyte countOrdered By: Reyes Sewell on 08-26-2024 RBC (Bld) [#/Vol] 5.47 10*6/uL Normal 4.6-6.2 [facility] Comment on above: Performed By: #### L 500.2500, L100.0100 #### [facility] [address] [place], [address] Automated blood hematocrit ( percentage)Ordered By: Reyes Sewell on 08-26-2024 Hematocrit (Bld) [Volume fraction] 48.0 % Normal 40-54 [facility] Comment on above: Performed By: #### L 500.2500, L100.0100 #### [facility] [address] [place], [address] Automated lymphocyte count a s percentage of total leukocytesOrdered By: Reyes Sewell on 08-26-2024 Lymphocytes/100 WBC Auto (Unsp spec) 15.1 % Low 19-41 [facility] BUN/creatinine ratioOrdered By: Reyes Sewell on 08-26-2024 Urea nitrogen/Creatinine [Mass ratio] 13.0 mg/mg 10-20 [facility] Basic Metabolic Profile (BMP )on 08-26-2024 BUN/CRE 13.0 RATIO Normal 10-20 [facility] Comment on above: Performed By: #### L 500.2500, L100.0100 #### [facility] [address] [place], [address] ECRCL 90.92 ml/min Normal 50-250 [facility] Comment on above: Performed By: #### L 500.2500, L100.0100 #### [facility] [address] [place], [address] GAP 11 Normal 5-15 [facility] Comment on above: Performed By: #### L 500.2500, L100.0100 #### [facility] [address] [place], [address] Potassium [Moles/Vol] 4.0 mmol/L Normal 3.3-5.1 [facility] Comment on above: Performed By: #### L 500.2500, L100.0100 #### [facility] [address] [place], [address] Basophil percentageOrdered B y: Reyes Sewell on 08-26-2024 Basophils/100 WBC (Bld) 0.7 % Normal 0-1 [facility] Comment on above: Performed By: #### L 500.2500, L100.0100 #### [facility] [address] [place], [address] Blood cultureOrdered By: Criss Sewell on 08-26-2024 Bacteria identified Cx Nom (Bld) No growth in 5 days. [facility] CBC W/Diff, Automatedon 08-15 Absolute Lymph 1.43 X10 3/uL Normal 0.83-4.51 [facility] Comment on above: Performed By: #### L 500.2500, L100.0100 #### [facility] [address] [place], [address] Absolute Neut 6.9 X10 3/uL Normal 2.0-7.7 [facility] Comment on above: Performed By: #### L 500.2500, L100.0100 #### [facility] [address] [place], [address] IG% 0.300 Normal 0.0-0.9 [facility] Comment on above: Result Comment: IG% - Immature Granulocytes (promyelocytes, myelocytes and metamyelocytes) > 1% indicates that a LEFT SHIFT is Present. Performed By: #### L 500.2500, L100.0100 #### [facility] [address] [place], [address] Lymphocytes/100 WBC (Bld) 15.1 % Low 19-41 [facility] Comment on above: Performed By: #### L 500.2500, L100.0100 #### [facility] [address] [place], [address] Nucleated RBC (Bld) [#/Vol] 0 10*3/uL Normal 0-5 [facility] Comment on above: Performed By: #### L 500.2500, L100.0100 #### [facility] [address] [place], [address] RDW SD 43.5 fl Normal 35.1-43.9 [facility] Comment on above: Performed By: #### L 500.2500, L100.0100 #### [facility] [address] [place], [address] Carbon dioxide, total [Moles /volume] in Central venous bloodOrdered By: Reyes Sewell on 08-26-2024 CO2 [Moles/Vol] 25.9 mmol/L Normal 21.0-32.0 [facility] Comment on above: Performed By: #### L 500.2500, L100.0100 #### [facility] [address] [place], [address] Chloride assayOrdered By: Rogelio Sewell on 08-26-2024 Chloride [Moles/Vol] 100 mmol/L Normal 98-108 [facility] Comment on above: Performed By: #### L 500.2500, L100.0100 #### [facility] [address] [place], [address] Emergency Department Summary on 08-26-2024 Emergency Department Summary [facility] Medical Records Department [address] [place] [address] Emergency Department Summary 08/26/24 MR#: [id number] Acct: [id number] Name: WENDI GRAHAM Rep #: [id number] : 1970 54 From: Reyes Sewell DO PCP: Care Physician,No Primary Status:DEP ER Location: ED HPI History of Present Illness Chief Complaint: Cellulitis Informant: patient Onset/Context/Joann santacruz Onset: Weeks (1) Context: Gradual Onset Timing: Continuous Quality: Dull, sharp, burning Location: Right lower leg Worsened by: Weightbearing Relieved by: Nothing Narrative Narrative: Patient presents with redness and swelling to his right lower leg that has been getting worse over the past week. Patient describes the pain as dull, burning, and sharp. Patient states he has had cellulitis in the past. Patient states he was given a prescription for Keflex. Patient states that this cleared up his cellulitis. Patient states that it started to return again last week. Patient states his pain is worse with any weightbearing. Patient states nothing helps with it. Patient denies any fevers or chills. Patient denies any new trauma or injury. [facility] Medical History Arrhythmia Home Medications ???Medication ???Instructions ???Recorded ???Last Taken ???Type cephalexin 500 mg capsule 500 mg PO Q6 #40 CAPSULES 08/26/24 Unknown Rx Allergy/AdvReac Type Severity Reaction Status Date / Time No Known Allergies Allergy Verified 08/26/24 17:03 Social History Smoking Status: Current every day smoker tobacco type: cigarettes and e-cigarettes ROS ROS ED Constitutional Constitutional ED: Denies chills or fever(s) Eyes Eyes: Denies blurry vision or change in vision ENT ENT ED: Denies rhinorrhea or sore throat Cardiovascular Cardiovascular: Denies chest pain or palpitations Respiratory/Chest Respiratory/Chest: Denies cough or dyspnea Gastrointestinal Gastrointestinal: Denies nausea or vomiting Genitourinary Genitourinary ED: Denies dysuria or hematuria Musculoskeletal Musculoskeletal: Denies back pain or neck pain Integumentary Denies abscess or rash Neurologic Neurologic: Denies headache(s) or weakness Allergic/Immunologi c Allergic/Immunologi c ED: Denies mouth swelling or urticaria EXAM Physical Exam Const Vital Signs: 08/26/24 17:02 08/26/24 17:03 08/26/24 19:12 Temperature 98.3 F 98.3 F 98 F Temperature Source Oral Oral Oral Pulse Rate 119 H 110 H 76 Respiratory Rate 16 16 16 Blood Pressure 159/132 H 159/132 H 118/85 H Blood Pressure Mean 141 141 96 Pulse Ox 98 98 100 Oxygen Delivery Method Room Air Room Air Room Air 08/26/24 20:00 08/26/24 20:34 Temperature 98 F 98 F Temperature Source Oral Pulse Rate 67 70 Respiratory Rate 18 18 Blood Pressure 122/79 H 132/79 H Blood Pressure Mean 93 96 Pulse Ox 99 100 Oxygen Delivery Method Room Air Positive well nourished and well developed General Appearance ED: well developed and NAD HEENT Reports moist mucous membranes Neck supple and no JVD Neuro oriented x3, CN's II-XII intact bilaterally and no sensory deficits noted Sensorium / Orientation: alert Motor Exam: strength 5/5 throughout Psych mental status grossly normal Skin Skin Narrative: There is erythema and warmth over the right lower leg. There is no discharge or drainage. There are no vesicles or pustules. There is no evidence of any abscess. Pulses are equal bilaterally. Sensation was intact to light touch in all digits. Capillary refill was less than 2 seconds in all digits. There is good range of motion. MDM MDM MDM Narrative Medical decision making narrative: Patient was advised that this does not look like it is cellulitis again. Patient was given a dose of Ancef here. CBC will be obtained to assess for leukocytosis and anemia. Basic metabolic profile will be obtained to assess for electrolyte abnormality and renal function. Blood cultures will be obtained to assess for sepsis. Lab Data Attestation: I reviewed the patient's lab results. Lab results narrative: CBC was reviewed and was within normal limits. Basic metabolic profile was reviewed and was within normal limits. Labs: Laboratory Results - last 24 hr 08/26/24 19:00 WBC 9.4 RBC 5.47 Hgb 15.5 Hct 48.0 MCV 87.8 MCH 28.3 MCHC 32.3 RDW Std Deviation 43.5 RDW Coeff of Betsy 13.5 Plt Count 376 MPV 9.1 Immature Gran % (Auto) 0.300 Neut % (Auto) 73.2 H Lymph % (Auto) 15.1 L [place] % (Auto) 6.7 Eos % (Auto) 4.0 Baso % (Auto) 0.7 Absolute Neuts (auto) 6.9 Absolute Lymphs (auto) 1.43 Nucleated RBC % 0 Sodium 136 (more content not included)... Normal [facility] Eosinophil percentageOrdered By: Reyes Sewell on 08-26-2024 Eosinophils/100 WBC (Bld) 4.0 % Normal 0-5 [facility] Comment on above: Performed By: #### L 500.2500, L100.0100 #### [facility] [address] [place], [address] Erythrocyte distribution wid th ratioOrdered By: Reyes Sewell on 08-26-2024 Erythrocyte distribution width (RBC) [Ratio] 13.5 % Normal 11.6-14.6 [facility] Comment on above: Performed By: #### L 500.2500, L100.0100 #### [facility] [address] [place], [address] Erythrocyte distribution wid th standard deviationOrdered By: Reyes Sewell on 08-26-2024 Erythrocyte distribution width (RBC) [Ratio] 43.5 fl 35.1-43.9 [facility] Glomerular filtration rate ( GFR) estimation/1.73 sq m using serum, plasma, or whole bOrdered By: Reyes Sewell on 08-26-2024 GFR/1.73 sq M.predicted among non-blacks MDRD (S/P/Bld) [Vol rate/Area] 95 mL/min/{1.73_m2} Normal >60 [facility] Comment on above: mL/min/1.73m2 CKD-EP I Creatinine Equation (2020) Result Comment: mL/m in/1.73m2 CKD-EPI Creatinine Equation (2020) Performed By: #### L 500.2500, L100.0100 #### [facility] [address] [place], [address] Hemoglobin measurementOrdere d By: Reyes Sewell on 08-26-2024 Hemoglobin (Bld) [Mass/Vol] 15.5 g/dL Normal 13.0-16.5 [facility] Comment on above: Performed By: #### L 500.2500, L100.0100 #### [facility] [address] [place], [address] Immature granulocytes/100 WB C Auto (Bld)Ordered By: Reyes Sewell on 08-26-2024 Immature granulocytes/100 WBC (Bld) 0.300 % 0.0-0.9 [facility] Comment on above: IG% - Immature Granu locytes (promyelocytes, myelocytes and metamyelocytes) > 1% indicates that a LEFT SHIFT is Present. MCV (mean corpuscular volume ) determinationOrdered By: Reyes Sewell on 08-26-2024 MCV (RBC) [Entitic vol] 87.8 fL Normal 80-94 [facility] Comment on above: Performed By: #### L 500.2500, L100.0100 #### [facility] [address] [place], [address] Mean corpuscular hemoglobin (MCH) determinationOrdered By: Reyes Sewell on 08-26-2024 MCH (RBC) [Entitic mass] 28.3 pg Normal 27.0-32.0 [facility] Comment on above: Performed By: #### L 500.2500, L100.0100 #### [facility] [address] [place], [address] Mean corpuscular hemoglobin concentration (MCHC) determinationOrdered By: Reyes Sewell on 08-26-2024 MCHC (RBC) [Mass/Vol] 32.3 g/dL Normal 32-36 [facility] Comment on above: Performed By: #### L 500.2500, L100.0100 #### [facility] [address] [place], [address] Mean platelet volume determi nationOrdered By: Reyes Sewell on 08-26-2024 Platelet mean volume (Bld) [Entitic vol] 9.1 fL Normal 6.2-12.0 [facility] Comment on above: Performed By: #### L 500.2500, L100.0100 #### [facility] [address] [place], [address] Monocyte percentageOrdered B y: Reyes Sewell on 08-26-2024 Monocytes/100 WBC (Bld) 6.7 % Normal 0-10 [facility] Comment on above: Performed By: #### L 500.2500, L100.0100 #### [facility] [address] [place], [address] Neutrophil percentageOrdered By: Reyes Sewell on 08-26-2024 Neutrophils/100 WBC (Bld) 73.2 % High 47-70 [facility] Comment on above: Performed By: #### L 500.2500, L100.0100 #### [facility] [address] [place], [address] Nucleated red blood cell per centageOrdered By: Reyes Sewell on 08-26-2024 Nucleated RBC/100 WBC (Bld) [Ratio] 0 % 0-5 [facility] Platelet countOrdered By: Rogelio Sewell on 08-26-2024 Platelets (Bld) [#/Vol] 376 10*3/uL Normal 150-450 [facility] Comment on above: Performed By: #### L 500.2500, L100.0100 #### [facility] [address] [place], [address] Potassium measurement (mass/ volume)Ordered By: Reyes Sewell on 08-26-2024 Potassium (Unsp spec) [Mass/Vol] 4.0 mmol/L 3.3-5.1 [facility] Serum creatinine measurement (mass/volume)Ordered By: Reyes Sewell on 08-26-2024 Creatinine [Mass/Vol] 0.96 mg/dL Normal 0.70-1.20 [facility] Comment on above: Performed By: #### L 500.2500, L100.0100 #### [facility] [address] [place], [address] Serum glucose measurement (m ass/volume)Ordered By: Reyes Sewell on 08-26-2024 Glucose [Mass/Vol] 97 mg/dL Normal 70-99 [facility] Comment on above: Performed By: #### L 500.2500, L100.0100 #### [facility] [address] [place], [address] Serum or plasma calcium heather urement (mass/volume)Ordered By: Reyes Sewell on 08-26-2024 Calcium [Mass/Vol] 9.9 mg/dL Normal 7.6-11.0 [facility] Comment on above: Performed By: #### L 500.2500, L100.0100 #### [facility] [address] [place], [address] Serum or plasma urea nitroge n measurement (mass/volume)Ordered By: Reyes Sewell on 08-26-2024 Urea nitrogen [Mass/Vol] 12 mg/dL Normal 4-19 [facility] Comment on above: Performed By: #### L 500.2500, L100.0100 #### [facility] [address] [place], [address] Sodium levelOrdered By: Reyes Sewell on 08-26-2024 Sodium [Moles/Vol] 136 mmol/L Normal 133-145 [facility] Comment on above: Performed By: #### L 500.2500, L100.0100 #### [facility] [address] [place], [address] White blood cell (WBC) count Ordered By: Reyes Sewell on 08-26-2024 WBC (Bld) [#/Vol] 9.4 10*3/uL Normal 4.4-11.0 [facility] Comment on above: Performed By: #### L 500.2500, L100.0100 #### [facility] [address] [place], [address] 12 Lead EKGon 07-02-2024 12 Lead EKG [facility] [address] [place] [address] 12 Lead EKG 07/02/24 1350 MR#: [id number] Acct: [id number] Name: WENDI GRAHAM Rep #: [id number] : 1970 54 From: Efraín Bhakta MD Attending Dr: Status: DEP ER Ordering Dr: Henry Wilson MD Date: 07/02/24 Location: ED Sex: M C Admitted: Test Reason : ARRYTH Blood Pressure : */* mmHG Vent. Rate : 81 BPM Atrial Rate : 81 BPM P-R Int : 120 ms QRS Dur : 100 ms QT Int : 358 ms P-R-T Axes : 78 81 65 degrees QTcB Int : 415 ms Normal sinus rhythm Normal ECG Confirmed by NELLA LOVE, EFRAÍN ([id number]), dictionary editor OLAMIDE BARTON ([id number]) on 07/05/2024 8:41:59 AM Referred By: Henry Wilson Confirmed By: EFRAÍN BHAKTA MD 07/05/24 0842 Date Efraín Bhakta MD CC: Dr. Henry Wilson MD; No Primary Care Physician Signed Normal [facility] Absolute lymphocyte countOrd ered By: Henry Wilson on 07-02-2024 Lymphocytes Auto (Unsp spec) [#/Vol] 1.64 10*3/uL 0.83-4.51 [facility] Absolute neutrophil countOrd ered By: Henry Wilson on 07-02-2024 Neutrophils (Bld) [#/Vol] 11.3 10*3/uL High 2.0-7.7 [facility] Anion gap in Serum or Plasma Ordered By: Henry Wilson on 07-02-2024 Anion gap [Moles/Vol] 10 mmol/L 5-15 [facility] Automated lymphocyte count a s percentage of total leukocytesOrdered By: Henry Wilson on 07-02-2024 Lymphocytes/100 WBC Auto (Unsp spec) 11.5 % Low 19-41 [facility] BUN/creatinine ratioOrdered By: Henry Wilson on 07-02-2024 Urea nitrogen/Creatinine [Mass ratio] 14.1 mg/mg - [facility] Basic Metabolic Profile (BMP )on 07-02-2024 BUN/CRE 14.1 RATIO Normal - [facility] Comment on above: Performed By: #### L 100.0100, L500.2500 #### [facility] [address] [place], [address] Calcium [Mass/Vol] 9.7 mg/dL Normal 7.6-11.0 [facility] Comment on above: Performed By: #### L 100.0100, L500.2500 #### [facility] [address] [place], [address] Chloride [Moles/Vol] 102 mmol/L Normal 98-108 [facility] Comment on above: Performed By: #### L 100.0100, L500.2500 #### [facility] [address] [place], [address] CO2 [Moles/Vol] 26.0 mmol/L Normal 21.0-32.0 [facility] Comment on above: Performed By: #### L 100.0100, L500.2500 #### [facility] [address] [place], [address] Creatinine [Mass/Vol] 0.99 mg/dL Normal 0.70-1.20 [facility] Comment on above: Performed By: #### L 100.0100, L500.2500 #### [facility] [address] [place], [address] ECRCL 89.10 ml/min Normal 50-250 [facility] Comment on above: Performed By: #### L 100.0100, L500.2500 #### [facility] [address] [place], [address] GAP 10 Normal 5-15 [facility] Comment on above: Performed By: #### L 100.0100, L500.2500 #### [facility] [address] [place], [address] GFR/1.73 sq M.predicted among non-blacks MDRD (S/P/Bld) [Vol rate/Area] 91 mL/min/{1.73_m2} Normal >60 [facility] Comment on above: Result Comment: mL/m in/1.73m2 CKD-EPI Creatinine Equation (2020) Performed By: #### L 100.0100, L500.2500 #### [facility] [address] [place], [address] Glucose [Mass/Vol] 109 mg/dL High 70-99 [facility] Comment on above: Performed By: #### L 100.0100, L500.2500 #### [facility] [address] [place], [address] Potassium [Moles/Vol] 4.1 mmol/L Normal 3.3-5.1 [facility] Comment on above: Performed By: #### L 100.0100, L500.2500 #### [facility] [address] [place], [address] Sodium [Moles/Vol] 138 mmol/L Normal 133-145 [facility] Comment on above: Performed By: #### L 100.0100, L500.2500 #### [facility] [address] [place], [address] Urea nitrogen [Mass/Vol] 14 mg/dL Normal 4-19 [facility] Comment on above: Performed By: #### L 100.0100, L500.2500 #### [facility] [address] [place], [address] Basophil percentageOrdered B y: Henry Wilson on 07-02-2024 Basophils/100 WBC (Bld) 0.5 % 0-1 [facility] CBC W/Diff, Automatedon 06-15 Absolute Lymph 1.64 X10 3/uL Normal 0.83-4.51 [facility] Comment on above: Performed By: #### L 100.0100, L500.2500 #### [facility] [address] [place], [address] Absolute Neut 11.3 X10 3/uL High 2.0-7.7 [facility] Comment on above: Performed By: #### L 100.0100, L500.2500 #### [facility] [address] [place], [address] Basophils/100 WBC (Bld) 0.5 % Normal 0-1 [facility] Comment on above: Performed By: #### L 100.0100, L500.2500 #### [facility] [address] [place], [address] Eosinophils/100 WBC (Bld) 2.4 % Normal 0-5 [facility] Comment on above: Performed By: #### L 100.0100, L500.2500 #### [facility] [address] [place], [address] Erythrocyte distribution width (RBC) [Ratio] 13.4 % Normal 11.6-14.6 [facility] Comment on above: Performed By: #### L 100.0100, L500.2500 #### [facility] [address] [place], [address] Hematocrit (Bld) [Volume fraction] 45.1 % Normal 40-54 [facility] Comment on above: Performed By: #### L 100.0100, L500.2500 #### [facility] [address] [place], [address] Hemoglobin (Bld) [Mass/Vol] 15.0 g/dL Normal 13.0-16.5 [facility] Comment on above: Performed By: #### L 100.0100, L500.2500 #### [facility] [address] [place], [address] IG% 0.300 Normal 0.0-0.9 [facility] Comment on above: Result Comment: IG% - Immature Granulocytes (promyelocytes, myelocytes and metamyelocytes) > 1% indicates that a LEFT SHIFT is Present. Performed By: #### L 100.0100, L500.2500 #### [facility] [address] [place], [address] Lymphocytes/100 WBC (Bld) 11.5 % Low 19-41 [facility] Comment on above: Performed By: #### L 100.0100, L500.2500 #### [facility] [address] [place], [address] MCH (RBC) [Entitic mass] 28.4 pg Normal 27.0-32.0 [facility] Comment on above: Performed By: #### L 100.0100, L500.2500 #### [facility] [address] [place], [address] MCHC (RBC) [Mass/Vol] 33.3 g/dL Normal 32-36 [facility] Comment on above: Performed By: #### L 100.0100, L500.2500 #### [facility] [address] [place], [address] MCV (RBC) [Entitic vol] 85.4 fL Normal 80-94 [facility] Comment on above: Performed By: #### L 100.0100, L500.2500 #### [facility] [address] [place], [address] Monocytes/100 WBC (Bld) 6.4 % Normal 0-10 [facility] Comment on above: Performed By: #### L 100.0100, L500.2500 #### [facility] [address] [place], [address] Neutrophils/100 WBC (Bld) 78.9 % High 47-70 [facility] Comment on above: Performed By: #### L 100.0100, L500.2500 #### [facility] [address] [place], [address] Nucleated RBC (Bld) [#/Vol] 0 10*3/uL Normal 0-5 [facility] Comment on above: Performed By: #### L 100.0100, L500.2500 #### [facility] [address] [place], [address] Platelet mean volume (Bld) [Entitic vol] 9.0 fL Normal 6.2-12.0 [facility] Comment on above: Performed By: #### L 100.0100, L500.2500 #### [facility] [address] [place], [address] Platelets (Bld) [#/Vol] 403 10*3/uL Normal 150-450 [facility] Comment on above: Performed By: #### L 100.0100, L500.2500 #### [facility] [address] [place], [address] RBC (Bld) [#/Vol] 5.28 10*6/uL Normal 4.6-6.2 [facility] Comment on above: Performed By: #### L 100.0100, L500.2500 #### [facility] [address] [place], [address] RDW SD 42.3 fl Normal 35.1-43.9 [facility] Comment on above: Performed By: #### L 100.0100, L500.2500 #### [facility] [address] [place], [address] WBC (Bld) [#/Vol] 14.3 10*3/uL High 4.4-11.0 [facility] Comment on above: Performed By: #### L 100.0100, L500.2500 #### [facility] [address] [place], [address] Carbon dioxide, total [Moles /volume] in Central venous bloodOrdered By: Henry Wilson on 07-02-2024 CO2 [Moles/Vol] 26.0 mmol/L 21.0-32.0 [facility] Chloride assayOrdered By: Leopoldo Wilson on 07-02-2024 Chloride [Moles/Vol] 102 mmol/L 98-108 [facility] Emergency Department Summary on 07-02-2024 Emergency Department Summary [facility] Medical Records Department [address] [place] [address] Emergency Department Summary 07/02/24 MR#: [id number] Acct: [id number] Name: WENDI GRAHAM Rep #: [id number] : 1970 54 From: Henry Wilson MD PCP: Care Physician,No Primary Status:REG ER Location: ED HPI History of Present Illness HPI Narrative: 54-year-old male history of some type of cardiac arrhythmia for which he is currently on no medications for. States that he has had atraumatic right lower leg swelling around the ankle and lower calf for about 4 days started on Friday. No prior history. No history of cellulitis. No fever or chills. No chest pain or shortness of breath. He has never had a DVT. No recent travel, surgery or immobilization. No recent hospitalization. Chief Complaint: Edema Informant: patient and spouse/S.O. Occured/Mechanism Mechanism/Context: No injury and No blunt trauma Onset/Context/Timin g Onset: Days Context: Gradual Onset Timing: Continuous Quality of Pain: Dull Current Severity: Mild Maximum Severity: Mild Associated Symptoms Associated Symptoms: Negative for Parasthesia, Weakness or Loss of Funtion Narrative Narrative: 54-year-old male with atraumatic right lower leg pain and swelling for 4 days. No history of cellulitis. No prior history of DVT or PE risk factors. Prior similar symptoms: No Recent Illness/Hospitaliza tion: No PFSH PFS Medical History Arrhythmia Home Medications ???Medication ???Instructions ???Recorded ???Last Taken ???Type hydrocodone-acetami nophen 5-325mg 1 tab PO Q4H PRN PRN Pain ##20 Unknown Rx 5mg-325mg indomethacin 25 mg capsule 50 mg (2 x 25 mg) PO TIDCM ##20 Unknown Rx polyethylene glycol 3350 17 gram 17 g PO QHS #5 packets 01/03/14 Un known Rx oral powder packet cephalexin 500 mg capsule 500 mg PO Q6 #40 CAPSULES 07/02/24 Unknown Rx Allergy/AdvReac Type Severity Reaction Status Date / Time No Known Allergies Allergy Verified 07/02/24 12:51 Social History Smoking Status: Current every day smoker tobacco type: cigarettes and e-cigarettes ROS ROS ED ROS Narrative Patient denies recent illness. Constitutional Constitutional ED: Denies chills or fever(s) Eyes Eyes: Denies blurry vision ENT ENT ED: Denies ear pain Cardiovascular Cardiovascular: Denies chest pain Respiratory/Chest Respiratory/Chest: Denies cough or dyspnea Gastrointestinal Gastrointestinal: Denies abdominal pain Genitourinary Genitourinary ED: Denies dysuria or hematuria Musculoskeletal Musculoskeletal: Denies arthralgias Integumentary Denies abscess or Abrasions Neurologic Neurologic: Denies headache(s) Psychiatric Psychiatric: Denies anxiety Endocrine Endocrinology: Denies polydipsia Hematologic/Lymphat ic Hematologic/Lymphat ic: Denies easy bleeding, easy bruising or lymphadenopathy Allergic/Immunologi c Allergic/Immunologi c ED: Denies mouth swelling, tongue swelling or urticaria EXAM Physical Exam Narrative Exam Narrative: Well-appearing middle-age male. Vital signs stable afebrile. No acute distress. Significant other present in the room. H EENT exam pupils round reactive light. Moist membranes. Neck nontender no lymphadenopathy. Lungs clear to auscultation bilaterally. Heart tachycardic 109 no murmur. Chest wall and ribs nontender. Abdomen soft nontender. Moving all 4 extremities. Right lower leg has mild edema at the distal half of the lower leg. Minimally tender. Really no significant redness. Only minimal warmth. Not classic for cellulitis. Normal DP pulse. Able to dorsi and plantarflexion bilaterally. Calf is nontender. There is no cords. There is no inguinal lymphadenopathy. There is no streaking or redness above the knee. Both lower extremities are neurovascularly intact. Neurologically she is awake and alert. Answering questions following commands. Const Vital Signs: 07/02/24 12:51 Temperature 96.8 F L Temperature Source Temporal Pulse Rate 109 H Respiratory Rate 15 Blood Pressure 148/84 H Blood Pressure Mean 105 Pulse Ox 99 Oxygen Delivery Method Room Air Positive well nourished and well developed; Negative for obese, cachectic, contractures or unkempt General Appearance ED: well developed; Negative for unkempt, cachectic or contractures Nutritional Appearance: Negative for cachectic or obese HEENT Reports moist mucous membranes normocephalic and atraumatic Eyes PERRL Neck full ROM and supple Chest Wall inspection of chest normal and palpation of chest normal Resp normal respiratory effort, no retractions and clear to auscultation bilaterally Auscultation: Negative for rales, rhonchi, wheezes o (more content not included)... Normal [facility] Eosinophil percentageOrdered By: Henry Wilson on 07-02-2024 Eosinophils/100 WBC (Bld) 2.4 % 0-5 [facility] Erythrocyte distribution wid th (RBC) [Ratio]Ordered By: Henry Wilson on 07-02-2024 Erythrocyte distribution width (RBC) [Entitic vol] 42.3 fL 35.1-43.9 [facility] Erythrocyte distribution wid th ratioOrdered By: Henry Wilson on 07-02-2024 Erythrocyte distribution width (RBC) [Ratio] 13.4 % 11.6-14.6 [facility] Erythrocyte distribution wid th standard deviationOrdered By: Henry Wilson on 07-02-2024 Erythrocyte distribution width (RBC) [Ratio] 42.3 fl 35.1-43.9 [facility] Estimation of creatinine sharifa aranceOrdered By: Henry Wilson on 07-02-2024 Estimated Creatinine Clearance Calc 89.10 ml/min 50-250 [facility] GFR/1.73 sq M.predicted stacey g non-blacks MDRD (S/P/Bld) [Vol rate/Area]Ordered By: Henry Wilson on 07-02-2024 Estimated GFR (MDRD) Non-Af Amer 91 >60 [facility] Comment on above: mL/min/1.73m2 CKD-EP I Creatinine Equation (2020) Glomerular filtration rate ( GFR) estimation/1.73 sq m using serum, plasma, or whole bOrdered By: Henry Wilson on 07-02-2024 GFR/1.73 sq M.predicted among non-blacks MDRD (S/P/Bld) [Vol rate/Area] 91 mL/min/{1.73_m2} >60 [facility] Comment on above: mL/min/1.73m2 CKD-EP I Creatinine Equation (2020) Hematocrit Auto (Bld) [Volum e fraction]Ordered By: Henry Wilson on 07-02-2024 Hematocrit (Bld) [Volume fraction] 45.1 % 40-54 [facility] Hemoglobin measurementOrdere d By: Henry Wilson on 07-02-2024 Hemoglobin (Bld) [Mass/Vol] 15.0 g/dL 13.0-16.5 [facility] Immature granulocytes/100 WB C Auto (Bld)Ordered By: Henry Wilson on 07-02-2024 Immature granulocytes/100 WBC (Bld) 0.300 % 0.0-0.9 [facility] Comment on above: IG% - Immature Granu locytes (promyelocytes, myelocytes and metamyelocytes) > 1% indicates that a LEFT SHIFT is Present. Lymphocytes Auto (Unsp spec) [#/Vol]Ordered By: Henry Wilson on 07-02-2024 Lymphocytes (Bld) [#/Vol] 1.64 10*3/uL 0.83-4.5 1 [facility] Lymphocytes/100 WBC Auto (Un sp spec)Ordered By: Henry Wilson on 07-02-2024 Lymphocytes/100 WBC (Bld) 11.5 % Low 19-41 [facility] MCV (mean corpuscular volume ) determinationOrdered By: Henry Wilson on 07-02-2024 MCV (RBC) [Entitic vol] 85.4 fL 80-94 [facility] Mean corpuscular hemoglobin (MCH) determinationOrdered By: Henry Wilson on 07-02-2024 MCH (RBC) [Entitic mass] 28.4 pg 27.0-32.0 [facility] Mean corpuscular hemoglobin concentration (MCHC) determinationOrdered By: Henry Wilson on 07-02-2024 MCHC (RBC) [Mass/Vol] 33.3 g/dL 32-36 [facility] Mean platelet volume determi nationOrdered By: Henry Wilson on 07-02-2024 Platelet mean volume (Bld) [Entitic vol] 9.0 fL 6.2-12.0 [facility] Monocyte percentageOrdered B y: Henry Wilson on 07-02-2024 Monocytes/100 WBC (Bld) 6.4 % 0-10 [facility] Neutrophil percentageOrdered By: Henry Wilson on 07-02-2024 Neutrophils/100 WBC (Bld) 78.9 % High 47-70 [facility] Nucleated red blood cell per centageOrdered By: Henry Wilsno on 07-02-2024 Nucleated RBC/100 WBC (Bld) [Ratio] 0 % 0-5 [facility] Platelet countOrdered By: Leopoldo Wilson on 07-02-2024 Platelets (Bld) [#/Vol] 403 10*3/uL 150-450 [facility] Potassium (Unsp spec) [Mass/ Vol]Ordered By: Henry Wilson on 07-02-2024 Potassium [Moles/Vol] 4.1 mmol/L 3.3-5.1 [facility] Potassium measurement (mass/ volume)Ordered By: Henry Wilson on 07-02-2024 Potassium (Unsp spec) [Mass/Vol] 4.1 mmol/L 3.3-5.1 [facility] RBC Auto (Bld) [#/Vol]Ordere d By: Henry Wilson on 07-02-2024 RBC (Bld) [#/Vol] 5.28 10*6/uL 4.6-6.2 [facility] Serum creatinine measurement (mass/volume)Ordered By: Henry Wilson on 07-02-2024 Creatinine [Mass/Vol] 0.99 mg/dL 0.70-1.20 [facility] Serum glucose measurement (m ass/volume)Ordered By: Henry Wilson on 07-02-2024 Glucose [Mass/Vol] 109 mg/dL High 70-99 [facility] Serum or plasma calcium heather urement (mass/volume)Ordered By: Henry Wilson on 07-02-2024 Calcium [Mass/Vol] 9.7 mg/dL 7.6-11.0 [facility] Serum or plasma urea nitroge n measurement (mass/volume)Ordered By: Henry Wilson on 07-02-2024 Urea nitrogen [Mass/Vol] 14 mg/dL 4-19 [facility] Sodium levelOrdered By: Henry Wilson on 07-02-2024 Sodium [Moles/Vol] 138 mmol/L 133-145 [facility] Venous Duplex US, Unilateral on 07-02-2024 Venous Duplex US, Unilateral [facility] [address] [place] [address] Venous Duplex US, Unilateral 07/02/24 1320 MR#: [id number] Acct: [id number] Name: WENDI GRAHAM Rep #: [id number] : 1970 54 From: Nicholas Huerta MD Attending Dr: Status: DEP ER Ordering Dr: Henry Wilson MD Date: 07/02/24 Location: ED Sex: M C Admitted: Reason For Study Reason For Study: Right leg swelling RIGHT LEFT GSV is normal. CFV is compressible, spontaneous, phasic, competent, CFV is compressible, spontaneous, phasic, competent and demonstrates normal augmentation. and demonstrates normal augmentation. FV is compressible, spontaneous, phasic, competent and demonstrates normal augmentation. POP V is compressible, spontaneous, phasic, competent and demonstrates normal augmentation. T/P Trunk is compressible. PTV is compressible. RT PerV is compressible. Procedure This is a venous duplex using B-mode, color flow and spectral Doppler. Exam performed in department. A preliminary report was called and/or faxed to Dr. Wilson. VL/Venous Duplex US, Unilateral Interpretation Summary Deep veins of the right lower extremity are patent and compressible segmentally. There is no evidence of right lower extremity deep vein thrombosis. Valvular competence appears intact within the proximal deep venous system on the right . The right great saphenous vein appears patent and compressible segmentally. The left common femoral vein is patent and compressible . __ Ordering Physician: Henry Wilson Performed By: Collette Moyer RVT 07/02/242011 Date Nicholas Huerta MD CC: Dr. 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 Normal [facility] White blood cell (WBC) count Ordered By: Henry Wilson on 07-02-2024 WBC (Bld) [#/Vol] 14.3 10*3/uL High 4.4-11.0 [facility] CNOVon 05-05-2023 CNOV Office Visit (UCWSTR) ---- Aaron GRAHAM ([id number]) 1970 M Date Time Provider Department 05/05/23 10:00 AM [facility] During your visit today, we recorded the following information about you: Temperature Pulse Respiration Blood pressure 97.6 degrees 116/minute 16/minute 110/80 Weight 80.6 kg Freddy Henry PA-C 05/05/2023 10:38 AM Signed This note was created using [employer]. Kiersten Graham is a 53 year old male. HPI Presents with a chief complaint of sores on his mouth and chin over the past 2 days. He states he did pop 1 yesterday. He did shave his wellington about a week ago. States it was a new razor but used a new shave gel. He does have a history of MRSA about 5 years ago. Denies fever or chills. No new soaps or detergents otherwise. Review of Systems Constitutional: Negative. HENT: Rash on chin and around mouth Respiratory: Negative. Cardiovascular: Negative. Gastrointestinal: Negative. Genitourinary: Negative. Musculoskeletal: Negative. All other systems reviewed and are negative. PAST MEDICAL HISTORY Diagnosis Date Tobacco abuse Current Outpatient Medications Medication Sig Dispense Refill ibuprofen (MOTRIN) 600 mg tablet Take 1 tablet by mouth every 6 hours as needed. FOR PAIN. 0 doxycycline (VIBRA-TABS) 100 mg tablet Take 1 tablet by mouth two times a day for 7 days. 14 tablet 0 mupirocin (BACTROBAN) 2 % ointment Apply to affected area three times a day for 7 days. 22 g 0 meloxicam (MOBIC) 15 mg tablet Take 1 tablet by mouth once daily. (Patient not taking: Reported on 05/05/2023) 30 tablet 2 No current facility-administer ed medications for this visit. PAST SURGICAL HISTORY Procedure Laterality Date NONE FAMILY HISTORY Problem Relation Age of Onset Cancer Father colon CA None Mother Social History Tobacco Use Smoking status: Every Day Packs/day: 0.50 Years: 30.00 Additional pack years: 0.00 Total pack years: 15.00 Types: Cigarettes Smokeless tobacco: Former Substance Use Topics Alcohol use: Yes Alcohol/week: 1.0 standard drink of alcohol Types: 1 Cans of Beer (12oz) per week Drug use: No Objective BP 110/80 Pulse 116 Temp 36.4 ?C (97.6 ?F) (Tympanic) Resp 16 Wt 80.6 kg (177 lb 9.6 oz) SpO2 100% BMI 27.00 kg/m? Physical Exam Vitals reviewed. Constitutional: Appearance: Normal appearance. HENT: Head: Normocephalic and atraumatic. Comments: Patient has multiple erythematous raised pustules in his wellington consistent with folliculitis. Skin: General: Skin is warm and dry. Neurological: Mental Status: He is alert. Assessment and Plan ASSESSMENT/PLAN: 1. Folliculitis - ICD9: 704.8, ICD10: L73.9 Will treat with doxycycline to cover for MRSA as he does have a history of this. Also given mupirocin ointment. Follow-up if not improving. Patient agreeable. Freddy Henry PA-C Allergies As of Date: 05/05/2023 (No Known Allergies) Date Reviewed: 05/05/2023 Reviewed by: Elicia Arce LPN - Fully Assessed Reason for Visit: Mouth/Lip Problem [68] Cmt: Sores on mouth and chin x 2 days Primary Visit Diagnosis:Folliculi tis [L73.9] Order(s):doxycyclin e (VIBRA-TABS) 100 mg tabletTake 1 tablet by mouth two times a day for 7 days.Disp: 14 tabletRfl: 0 mupirocin (BACTROBAN) 2 % ointmentApply to affected area three times a day for 7 days.Disp: 22 gRfl: 0 Prescriptions as of 05/05/2023 - doxycycline (VIBRA-TABS) 100 mg tablet Take 1 tablet by mouth two times a day for 7 days. - mupirocin (BACTROBAN) 2 % ointment Apply to affected area three times a day for 7 days. - ibuprofen (MOTRIN) 600 mg tablet Take 1 tablet by mouth every 6 hours as needed. FOR PAIN. - meloxicam (MOBIC) 15 mg tablet Take 1 tablet by mouth once daily. 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 MUPIROCIN 2 % TOPICAL OINTMENT 22 g 0 05/05/2023 05/12/2023 Route: TOPICAL Sig: Apply to affected area three times a day for 7 days. Encounter Status:Closed by FREDDY HENRY on 05/05/23 [facility] EMERGENCY REPORTon EMERGENCY REPORT [facility] EMERGENCY ROOM REPORT NAME NUMBER SEX AGE ADMIT DISC TYPE MED.RECORD# ROCK WENDI Walker [id number] M 47 02/12/17 02/12/17 Chiki [id number] ROOM:ER-D DATE OF :1970 PHYSICIAN NO.:[id number] PHYSICIAN NAME:FRANCA Ruiz M.D. PHYSICIAN:NO DOCTOR FAMILY PHYSICIAN: NO DOCTOR CHIEF COMPLAINT: Cough and shortness of breath. HISTORY OF PRESENT ILLNESS: The patient states that she has developed increasing cough over the last 3-4 days. He has a slight burning discomfort to his throat and mid chest when he coughs. He feels mildly shortness of breath, particularly with activity. He has not had any fever or chills, nausea, or vomiting. He states that he has been exposed to strep in his family. Other family members have had cough and bronchitis. PAST MEDICAL HISTORY: Negative for chronic medical problems. MEDICATIONS: None. ALLERGIES: No known drug allergies. SOCIAL HISTORY: He does smoke. He does not drink alcohol. PHYSICAL EXAMINATION: This is a 47-year-old male who is alert and appropriate. He does not appear toxic or in any acute distress. Skin is pink, warm and dry without any rashes. Slight hoarse voice noted. Pupils are equal, round, and reactive to light. Extraocular muscles are intact. TMs are normal. Nose is normal. Mouth and throat appear normal. Neck is supple without adenopathy. Lungs are generally clear. No crackles or wheezes. There are slightly diminished breath sounds. He does have a slight harsh cough occasionally. Cardiac exam shows regular rhythm without any ectopy, murmurs, gallops or rubs. No chest wall tenderness. Abdomen is soft and nontender. He moves extremities appropriately without focal weakness. Good peripheral pulses. Good capillary refill. Vital Signs: Temperature 97.8, pulse 98, respirations 16, blood pressure 123/85, O2 sat 97%. DIAGNOSIS: Upper respiratory infection with cough and probable developing bronchitis. EMERGENCY DEPARTMENT COURSE AND TREATMENT/PLAN/DISP OSITION: He was given a prescription for Zithromax and several day course of prednisone, Tessalon for cough. He is to follow up with his family doctor or [facility] in 3-5 days if no better. Return if symptoms worsen. D: Dennys Ruiz MD TD: 12:40 JOB #: [id number] Electronically signed by: Not Currently Signed Transcribed by: dung 02/12/2017 14:33 EMERGENCY ROOM REPORT ROCK WENDI Walker [address] [facility] EMERGENCY REPORTon 7 EMERGENCY REPORT [facility] EMERGENCY ROOM REPORT NAME NUMBER SEX AGE ADMIT DISC TYPE MED.RECORD# WENDI GRAHAM [id number] M 46 11/28/2016 11/28/2016 E.RBrunilda [id number] ROOM:ER DATE OF :1970 PHYSICIAN NO.:[id number] PHYSICIAN NAME: PHYSICIAN:Keny Rodriguez CHIEF COMPLAINT: Concern for possible infection of burned left ring finger. HISTORY OF PRESENT ILLNESS: This 46-year-old white male states that this past weekend on Friday he was working on his car and was wearing a stainless steel ring when he touched an electric portion of the vehicle which arced into the ring and led to larson to 2 sides of his left ring finger. He states that he has continued to have oozing from these areas and noted some redness. He states that he has also had increasing pain in this area of redness as well. He denies any purulent drainage from the finger. He states the burn is noncircumferential. He denies any fevers or chills. PAST MEDICAL HISTORY: Denies. PAST MEDICAL HISTORY: Denies. MEDICATIONS: Denies. ALLERGIES: No known drug allergies. SOCIAL HISTORY: The patient denies any use of tobacco, alcohol, or drugs. IMMUNIZATIONS: He states his last tetanus is up to date 2 years ago. PHYSICAL EXAMINATION: Temperature is 97.7, pulse 76, respirations 18, blood pressure is 123/82, pulse oximetry was not obtained. General: The patient is alert, awake, oriented, appears to be in no acute distress, nontoxic, pleasant, cooperative during evaluation. HEENT examination is unremarkable. Neck is supple. Heart: Regular rate and rhythm without murmurs, heaves, lifts, or thrills. Lungs are essentially clear to auscultation bilaterally. Respirations are easy and symmetric without retractions or tachypnea. Evaluation of the left upper extremity revealed distal pulses are +2/4 and present at the radial and ulnar aspects of the wrists. Capillary refill is less than 2 seconds. There is noted to be 2 discrete 2nd-degree larson to the proximal phalanx of the left ring finger. The burn is noncircumferential. On the most medial aspect of the finger is an area of erythema with increased tenderness and temperature consistent with cellulitis. The other burn is without obvious evidence of secondary infection. EMERGENCY DEPARTMENT COURSE AND TREATMENT: The patient was subsequently given prescriptions for Bactrim DS, Keflex, and Bactroban ointment. I discussed burn care with the patient as well. He was given a referral to follow up with [facility]. DIAGNOSIS: Second-degree larson to the left ring finger with secondary cellulitis. PLAN/DISPOSITION: The patient was discharged home in stable and satisfactory condition. D: Keny Rodriguez TD: 11/29/2016 12:50:55 JOB #: [id number] Keny Rodriguez D.O. Emergency Department 12/19/16 07:31 EMERGENCY ROOM REPORT WENDI 1 [facility] EMERGENCY ROOM REPORT NAME NUMBER SEX AGE ADMIT DISC TYPE MED.RECORD# WENDI GRAHAM [id number] M 46 11/28/2016 11/28/2016 ChristopherRBrunilda [id number] ROOM:ER DATE OF :1970 PHYSICIAN NO.:[id number] PHYSICIAN NAME: PHYSICIAN:Keny Rodriguez Transcribed by: PAOLA 11/29/2016 12:50:55 Copy for: MICHAEL HAMMOND DO Copy for: NO DOCTOR ON ADMISSION SHEET EMERGENCY ROOM REPORT ROCK YVONNEANGELA Walker 2 [facility] EMERGENCY REPORTon 7 EMERGENCY REPORT [facility] EMERGENCY ROOM REPORT NAME NUMBER SEX AGE ADMIT DISC TYPE MED.RECORD# WENDI GRAHAM [id number] M 46 12/03/2016 12/03/2016 ChristopherRBrunilda [id number] ROOM:ER DATE OF :1970 PHYSICIAN NO.: PHYSICIAN NAME: PHYSICIAN:GILBERT FOSS CHIEF COMPLAINT: Patient came in complaining of ear discomfort. He thinks he may have cerumen in his ear that he cannot get out. HISTORY OF PRESENT ILLNESS: He tried doing peroxide yesterday, and was not coming out. Denies fevers, chills, nausea, or vomiting. It was giving him discomfort and he could not handle it. PAST MEDICAL HISTORY: He has had a history of some cardiac dysrhythmia many years ago. SURGICAL HISTORY: Denies. SOCIAL HISTORY: He does smoke. Denies alcohol use. REVIEW OF SYSTEMS: Six systems reviewed, negative except as mentioned above. PHYSICAL EXAMINATION: He is afebrile. Blood pressure 121/92, pulse 93, respirations 16. Head is normocephalic, atraumatic. His right ear has no cerumen. His left ear is impacted with cerumen. Pupils equal, round, reactive to light. Nares patent. Throat has adequate moisture. Heart without murmur. S1 equals S2. No S3 or S4 appreciated. Lungs are clear to auscultation bilaterally. No rales, rhonchi, or retractions. Abdomen: Soft, nontender, nondistended. Skin is warm and dry. EMERGENCY DEPARTMENT COURSE AND TREATMENT: We did place saline in the ears. He was irrigated, and a large amount of cerumen was obtained. He feels much better. He was also told to quit smoking. DIAGNOSIS: 1. Cerumen impaction of left ear, ear pain with cerumen removal. 2. Tobacco abuse. D: GILBERT FOSS TD: 12/03/2016 15:47:36 JOB #: [id number] Gilbert Foss D.O. Emergency Department 12/06/16 11:54 Transcribed by: NMAna 12/03/2016 15:47:36 Copy for: PIPO Pavon III Copy for: NO DOCTOR ON ADMISSION SHEET EMERGENCY ROOM REPORT WENDI GRAHAM [address] [facility] EMERGENCY REPORTon 7 EMERGENCY REPORT [facility] EMERGENCY ROOM REPORT NAME NUMBER SEX AGE ADMIT DISC TYPE MED.RECORD# WENDI Walker [id number] M 46 09/26/2016 09/26/2016 Chiki [id number] ROOM:ER DATE OF :1970 PHYSICIAN NO.:[id number] PHYSICIAN NAME: PHYSICIAN:Keny Rodriguez Patient was seen at 10:22 a.m. on September 26, 2016. CHIEF COMPLAINT: Injury to left ribs. HISTORY OF PRESENT ILLNESS: This 46-year-old white male presents to the ED secondary to complaint of left posterior rib pain that began after he was playing with his girls and fell backwards, striking the back of his left ribs against a wood stove. He states that the injury occurred this weekend, on Friday. He states that he also noted an abrasion from his initial injury. He states the last 2 nights he has not been sleeping well, secondary to the pain. He has been taking [id number] Tylenol and ibuprofen for his pain. He states the pain is worse with deep breathing and moving. He denies any true shortness of breath. Denies any other injuries. PAST MEDICAL HISTORY: Includes tobacco abuse, sinus arrhythmia. Does not have a primary care doctor. PAST SURGICAL HISTORY: Denies. MEDICATIONS: Denies. ALLERGIES: No known drug allergies. SOCIAL HISTORY: He does admit to smoking less than pack per day, denies any drug use. Does admit to occasional alcohol use. PHYSICAL EXAMINATION: Temperature is 98.1, pulse 92, respiratory rate 20, blood pressure is 134/73, pulse oximetry is 98% on room air. General: Patient is alert, awake, oriented, appears to be in no obvious distress, nontoxic, pleasant, cooperative during evaluation. HEENT examination is unremarkable with moist mucous membranes. Neck is supple without meningismus. Heart: Regular rate and rhythm without murmurs, heaves, lifts, or thrills. Lungs are essentially clear to auscultation bilaterally, though the patient does splint with deep inspiration. Patient does have a healing superficial abrasion over the posterior aspect of the left thorax. There is no crepitance or stepoff or subcutaneous emphysema, though the patient does have discrete tenderness in this area with palpation. Abdomen is soft, benign, without rebound, rigidity, or guarding noted. Skin is otherwise warm, soft, dry, other than the abrasion. DIAGNOSTIC DATA: Subsequently, 2-view chest x-ray is performed which revealed no acute disease process with no significant change has occurred. The lungs are hyperinflated per the radiologist. Left rib x-rays revealed no acute disease process per the radiologist. EMERGENCY DEPARTMENT COURSE AND TREATMENT: I had a detailed discussion with the patient concerning his x-ray results and recommended that he take 10 deep breaths every hour when awake. He was subsequently provided a prescription for [place] for pain after obtaining an OARRS report. He was provided a work note, as well. He was given a referral to follow up with [facility] and provided the phone number to follow up within a week. DIAGNOSES: 1. Left posterior chest wall contusion. 2. Superficial abrasion. PLAN/DISPOSITION: Patient was discharged home in stable and satisfactory condition. D: Keny Rodriguez TD: 09/26/2016 11:27:28 EMERGENCY ROOM REPORT WENDI GRAHAM 1 [facility] EMERGENCY ROOM REPORT NAME NUMBER SEX AGE ADMIT DISC TYPE MED.RECORD# WENDI GRAHAM [id number] M 46 09/26/2016 09/26/2016 Chiki [id number] ROOM:ER DATE OF :1970 PHYSICIAN NO.:[id number] PHYSICIAN NAME: PHYSICIAN:Keny Rodriguez JOB #: [id number] Keny Rodriguez D.O. Emergency Department 10/04/16 03:06 Transcribed by: PAOLA 09/26/2016 11:27:28 Copy for: MICHAEL HAMMOND DO Copy for: NO DOCTOR ON ADMISSION SHEET EMERGENCY ROOM REPORT WENDI GRAHAM [address] [facility] CHEST PA/LATon 09-26-2016 CHEST PA/LAT [place] [address] Patient: WENDI GRAHAM. Phone#: : 1970 Age: 46 Gender: M Pt. Type: ER Account: [id number] Location: 052 Ordering: KENY RODRIGUEZ Exam Date: 09/26/2016/10:42 Family Phys: NO DOCTOR Charge Code: [id number] Physician: Weston Order #: [id number] DLP Dose#: PROCEDURE: X-RAY CHEST PA/LAT 2 VIEWS COMPARISON: [facility], XR, CHEST PA/LAT, 11/19/2012, 13:45. INDICATIONS: Pain FINDINGS: LUNGS: The lungs are hyperinflated. No significant pulmonary parenchymal abnormalities. VASCULATURE: Normal. Unremarkable pulmonary vasculature. CARDIAC: Normal. No cardiac silhouette abnormality or cardiomegaly. MEDIASTINUM: Normal. No visible mass or adenopathy. PLEURA: Normal. No effusion or pleural thickening. BONES: Normal. No fracture or visible bony lesion. OTHER: Negative. CONCLUSION: No acute disease. No significant change has occurred. The lungs are hyperinflated. Dictated by: Linnette Garcia MD on 09/26/2016 at 10:58 Approved by: Linnette Garcia MD on 09/26/2016 at 10:[address] [facility] RIBS LT UNILAT W/CHEST EXPIR ATIONon 09-26-2016 RIBS LT UNILAT W/CHEST EXPIRATION [place] [address] Patient: WENDI GRAHAM Phone#: : 1970 Age: 46 Gender: M Pt. Type: ER Account: [id number] Location: 052 Ordering: KENY RODRIGUEZ Exam Date: 09/26/2016/10:38 Family Phys: NO DOCTOR Charge Code: [id number] Physician: Weston Order #: [id number] DLP Dose#: PROCEDURE: X-RAY RIBS LT UNILAT WITH EXPIRATION CHEST COMPARISON: None. INDICATIONS: Pain FINDINGS: LUNGS: Normal. No significant pulmonary parenchymal abnormalities. VASCULATURE: Normal. Unremarkable pulmonary vasculature. CARDIAC: Normal. No cardiac silhouette abnormality or cardiomegaly. MEDIASTINUM: Normal. No visible mass or adenopathy. PLEURA: Normal. No effusion or pleural thickening. BONES: Normal. No fracture or visible bony lesion. OTHER: Negative. CONCLUSION: No acute disease. Dictated by: Linnette Garcia MD on 09/26/2016 at 10:59 Approved by: Linnette Garcia MD on 09/26/2016 at 10:[address] [facility] Vital Signs Date Time Vital Sign Value Performing Clinician Facility 11-16-2024 10:06-0400 Body height 177.8 cm No Primary Care Physician [facility] 11-16-2024 10:06-0400 Body mass index (BMI) [Ratio] 22.6 kg/m2 No Primary Care Physician [facility] 11-16-2024 10:06-0400 Body weight 71.66 kg No Primary Care Physician [facility] 11-16-2024 10:06-0400 Diastolic blood pressure 70 mm[Hg] No Primary Care Physician [facility] 11-16-2024 10:06-0400 Heart rate 83 /min No Primary Care Physician [facility] 11-16-2024 10:06-0400 Respiratory rate 18 /min No Primary Care Physician [facility] 11-16-2024 10:06-0400 Systolic blood pressure 113 mm[Hg] No Primary Care Physician [facility] 08-26-2024 20:34-0400 Body temperature 98 [degF] No Primary Care Physician [facility] 08-26-2024 20:34-0400 Diastolic blood pressure 79 mm[Hg] No Primary Care Physician [facility] 08-26-2024 20:34-0400 Heart rate 70 /min No Primary Care Physician [facility] 08-26-2024 20:34-0400 Respiratory rate 18 /min No Primary Care Physician [facility] 08-26-2024 20:34-0400 SaO2% (BldA) [Mass fraction] 100 % No Primary Care Physician [facility] 08-26-2024 20:34-0400 Systolic blood pressure 132 mm[Hg] No Primary Care Physician [facility] 08-26-2024 17:02-0400 Body height 177.8 cm No Primary Care Physician [facility] 08-26-2024 17:02-0400 Body mass index (BMI) [Ratio] 22.8 kg/m2 No Primary Care Physician [facility] 08-26-2024 17:02-0400 Body weight 72.23 kg No Primary Care Physician [facility] 07-02-2024 12:51-0400 Body height 177.8 cm No Primary Care Physician [facility] 07-02-2024 12:51-0400 Body mass index (BMI) [Ratio] 23.6 kg/m2 No Primary Care Physician [facility] 07-02-2024 12:51-0400 Body temperature 96.8 [degF] No Primary Care Physician [facility] 07-02-2024 12:51-0400 Body weight 74.84 kg No Primary Care Physician [facility] 07-02-2024 12:51-0400 Diastolic blood pressure 84 mm[Hg] No Primary Care Physician [facility] 07-02-2024 12:51-0400 Heart rate 109 /min No Primary Care Physician [facility] 07-02-2024 12:51-0400 Respiratory rate 15 /min No Primary Care Physician [facility] 07-02-2024 12:51-0400 SaO2% (BldA) [Mass fraction] 99 % No Primary Care Physician [facility] 07-02-2024 12:51-0400 Systolic blood pressure 148 mm[Hg] No Primary Care Physician [facility] 05-05-2023 10:03-0500 Body temperature 97.59 [degF] Freddy Athy PA-C Work Phone: [facility] 05-05-2023 10:03-0500 Body weight 80.56 kg Freddy Athy PA-C Work Phone: [facility] 05-05-2023 10:03-0500 Diastolic blood pressure 80 mm[Hg] Freddy Athy PA-C Work Phone: [facility] 05-05-2023 10:03-0500 Heart rate 116 /min Freddy Athy PA-C Work Phone: [facility] 05-05-2023 10:03-0500 Respiratory rate 16 /min Freddy Athy PA-C Work Phone: [facility] 05-05-2023 10:03-0500 SaO2% (BldA) [Mass fraction] 100 % Freddy Athy PA-C Work Phone: [facility] 05-05-2023 10:03-0500 Systolic blood pressure 110 mm[Hg] Freddy Athy PA-C Work Phone: [facility] Encounters Encounter Date Encounter Type Care Provider Facility Start: 04-13-2025 ambulatory [facility] Facility:[place] Start: 02-07-2025 ambulatory Tiffany Mateusz Facility:[facility] Start: 02-02-2025 ambulatory [facility] Facility:[facility] Start: 12-28-2024 ambulatory [facility] Facility:[place] Start: 11-16-2024 End: 11-16-[address] Tiffany Child MD -[facility] Work Phone: Start: 11-16-2024 End: 11-16-2024 ambulatory No Primary Care Physician -[facility] Start: 09-21-2024 End: 09-21-2024 ambulatory [facility] CLASS[facility]-TRAPEZE PERFORMER Facility:[facility] Start: 09-21-2024 End: 09-21-2024 Patient encounter procedure [facility] PERFORMER [facility] Start: 09-16-2024 End: 09-16-2024 ambulatory BRIAN LUCAS [facility] CLASSER-TRAPEZE PERFORMER Facility:A Start: 09-16-2024 End: 09-16-2024 Patient encounter procedure [facility] CLASSER-TRAPEZE PERFORMER [facility] Start: 08-26-2024 End: 08-26-2024 Emergency department patient visit No Primary Care Physician -Emergency Department Work Phone: Start: 07-02-2024 End: 07-02-2024 Emergency department patient visit No Primary Care Physician -Emergency Department Work Phone: Start: 05-05-2023 End: 05-05-2023 ambulatory Facility:[facility] Start: 05-05-2023 End: 05-05-2023 Patient encounter procedure Freddy Henry PA-C Work Phone: [facility] Comment on above: Folliculitis (Primar y Dx) Start: 02-12-2017 End: 02-12-2017 Emergency department patient visit DENNYS RUIZ [facility] Start: 12-03-2016 End: 12-03-2016 Emergency department patient visit GILBERT FOSS [facility] Start: 11-28-2016 End: 11-28-2016 Emergency department patient visit KENY GARCIA [facility] Start: 09-26-2016 End: 09-26-2016 Emergency department patient visit KENY GARCIA [facility] Procedures Date Procedure Procedure Detail Performing Clinician Start: 08-26-2024 Estimated creatinine clearance No Primary Care Physician Start: 08-26-2024 Blood culture No Primar y Care Physician Start: 07-02-2024 Estimated creatinine clearance No Primary Care Physician Plan of Treatment Date Care Activity Detail Author Start: 11-16-2024 Evaluation of diagnostic study results [facility] Start: 08-26-2024 End: 08-26-2024 [facility] Start: 08-26-2024 Bacteria identified in Blood by Culture Blood Culture [facility] Start: 07-02-2024 [facility] Start: 03-17-2023 Depression Assessment Depression Assessment [facility] Start: 11-15-2022 Influenza vaccination Influenza Vaccine (#1) [facility] Start: 2021 Shingrix Vaccine (1 of 2) Shingrix Vaccine (1 of 2) [facility] Start: 01-07-2016 Diabetes Screening Diabetes Screening [facility] Start: 01-07-2016 Screening for malignant neoplasm of colon [facility] Start: 2006 Lipid panel Lipid Screening [facility] Start: 1990 Urine microalbumin profile DTaP,Tdap,Td Vaccine (1 - Tdap) [facility] Start: 1989 Hepatitis C screening Hepatitis C Screening [facility] Start: 1989 HIV screening HIV Screening [facility] Start: 1977 Pneumococcal vaccination Pneumococcal Vaccine (1 of 2 - PCV) [facility] Start: 1971 Covid-19 Vaccine (#1) Covid-19 Vaccine (#1) [facility] Start: 1971 Hepatitis B Vaccine (1 of 3 - 3-dose series) Hepatitis B Vaccine (1 of 3 - 3-dose series) [facility] Comprehensive metabo lic 1999 panel - Serum or Plasma [facility] CT for calcium scori ng WO contrast and CTA W contrast IV Heart and coronary arteries [facility] Lipid 1996 panel - S rhett or Plasma [facility] Patient Education ED Cellulitis [facility] Work Phone: Patient referral [facility] Work Phone: [facility] Payers Date Payer Category Payer Medicaid [id number] 2024 Medicaid [id number] 2024 Self-pay 1970 Unknown [id number] [id number]. [id number] 1971 Unknown [id number] 2.16. [id number] Self-pay [id number] Unknown [id number] Unknown [id number] 2.16.8 [id number] Unknown [id number] 2.16.8 [id number] Unknown [id number] 2.16.8 [id number] Unknown [id number] 2.16.8 [id number] Unknown [id number] 2.16.8 [id number] Unknown [id number] 2.16.8 [id number] Unknown [id number] 2.16.8 [id number] Social History Date Type Detail Facility Start: 05-02-2014 End: 08-26-2024 Tobacco smoking status NHIS Smokes tobacco daily [facility] Work Phone: History of tobacco use Cigarette Smoker C [facility] Work Phone: Start: 05-02-2014 End: 05-05-2023 Cigarettes smoked current (pack per day) - Reported 0.[address] [facility] Start: 05-02-2014 Tobacco use and exposure [employer] law smokeless tobacco user [facility] Work Phone: Start: 05-05-2023 Alcohol intake Current drinke r of alcohol (finding) [facility] Start: 05-05-2023 Tobacco use panel [facility] Start: 1970 Sex Assigned At Not on file C [facility] Start: 07-02-2024 Sex Male (finding) [facility] Start: 1970 Sex Assigned At Male [facility] Start: 09-01-2024 End: 11-01-2024 Tobacco smoking status Light tobacco smoker (finding) [facility] Natar[facility] [place] Sexual Orientation [facility] Mental Status Date Assessment Result Facility 07-02-2024 Cognitive function Level Of Cons ciousness Awake;Alert;Appropriate;Follow s Commands [facility] Work Phone: Clinical Notes 05-05-2023 to 11-16-2024 Note Date & Type Note Facility 11-16-2024 Progress note [facility] 11-16-2024 Progress note Note Date/Time November 16, 2024 10:47am [facility] [address] [place], [place] [address] OFFICE VISIT Date of Service: 11/16/24 MR#: [id number] Acct: [id number] Name: WENDI GRAHAM Rep #: [id number] : 1970 Provider: Dr. Bipin Child MD Age/Sex: 54/M Location: [facility] Status: Signed HPI HPI History of Present Illness Details: This gentleman has past medical history significant for nicotine dependence and COPD. For the past couple of years, he has been experiencing anterior chest tightness with shortness of breath on moderate exertion. This is relieved with rest. No radiation to the arm neck or jaw. No rest symptoms. No diaphoresis. He recently has had a pharmacological stress test and for the symptoms. The stress test was reported as showing no ischemia however his LVEF was reported as41% on gated images. Subsequently he has been referred to us for further evaluation and management. Denies orthopnea or PND. Occasional ankle edema. Per patient, he has been toldin the past that he has had 2 heart attacks. No history of coronary angiography. Intake Vital Signs 08/26/24 17:02 11/16/24 10:06 Height 5 ft 10 in 5 ft 10 in Weight: 158 lb BMI 22.6 BP 113/70 Blood Pressure Location Lt brachial Position Sitting Respiration 18 Pulse 83 Pulse Source Monitor Intake Visit Reasons: HFrEF ([place]) Director Business Required: No Accompanied by: Self Is patient in pain?: No Allergies No Known Allergies Allergy (Verified 08/26/24 17:03) Medications ?Medication ?Instructions ?Recorded ?Confirmed ?Type acetaminophen 500 mg tablet 1,000 mg PO 3XD PRN fever or pain 11/01/24 11/01/24 History losartan 25 mg tablet 25 mg PO QDAY 11/01/2411/01 History naproxen sodium 220 mg tablet 220 mg PO Q8H PRN pain 0 11/01/24 11/01/24 History albuterol sulfate 90 mcg/actuation 2 puff inhalation Q 4H PRN 11/16/24 11/16/24 History aerosol inhaler budesonide-formoterol HFA 160 2 inh inhalation TID 05/1111/16/24 History mcg-4.5 mcg/actuation aerosol inhaler (Symbicort) Ejection fraction %: 41 Have you fallen in the past year?: No PFSH Medical History (Updated 11/16/24 @ 10:[address] Tiffany Child MD) Cellulitis of external ear, bilateral Moderate COPD (chronic obstructive pulmonary disease) Heart failure with reduced ejection fraction Arrhythmia Family History (Updated 11/01/24 @ 12:11 by Milagros Mclaughlin LPN) Mother Alzheimer's dementia Melanoma of skin Grandmother COPD (chronic obstructive pulmonary disease) Father Colon cancer Social History (Updated 11/01/24 @ 12:08 by Milagros Mclaughlin LPN) Smoking Status: Light Smoker (<10/day) alcohol intake: former substance use type: former substance user, marijuana, crack/cocaine and amphetamines ROS Const Const: Positive for fatigue; Negative for weakness Eyes Eyes: Negative for change in vision ENT ENT: Negative for dizziness or balance problems Cardio Chest Pain: Yes Frequency: weekly Character: tightness Duration: minutes Palpitations: Yes feels like its: pounding Edema: Right (occ) Resp Respiratory: Positive for SOB with activity; Negative for SOB at rest or SOB orthopnea\SOB lying down GI GI: Positive for heartburn (occ); Negative nausea Musc Musc: Negative for balance problems Neuro Neuro: Positive for lightheadedness (occ standing too fast); Negative for dizziness, near syncope, syncope or weakness Endo Endo: Positive for fatigue Cardiology Exam Const Appearance: comfortable and no acute distress Nutritional Appearance: well nourished Neck Neck: no JVD Carotids: Negative bruit Chest Auscultation: Bilateral: Diminished Lung Sounds Cardio Rate: regular rate Rhythm: regular rhythm Heart sounds: S1 normal and S2 normal Neuro General: patient alert, patient awake and patient oriented x3 Extremities Lower Extremity Edema: None: Bilateral Supplemental Info Supplemental Information Labs: No Data to Display Diagnostics: Electrocardiogram Abdomen/Pelvis CT Venous Doppler Study Pulmonary: No Data to Display Past Visits: Cardiology Visit 11/16/24 Assessment and Plan Assessment and Plan (1) Chest pain on exertion: Status: Chronic Plan: No ischemia reported on pharmacological stress test however ischemic heart disease remains a possibility. Discussed further evaluation with patient. Conventional coronary angiography versus CT angiography discussed. At this point in time, patient wishes to have coronary CT angio first. Will refer. Start enteric-coated aspirin 81 mg daily. Metoprolol extended release 25 mg daily. Check lipid panel. (2) Left ventricular systolic dysfunction (LVSD): Status: Acute Plan: LVEF reported at 41% on gated images on stress test. Will check echocardiogram. Continue losartan. Start beta-blockers. See #1 above. (3) COPD (chronic obstructive pulmonary disease): Status: Chronic Plan: As per pulmonology/internal medicine. (4) Nicotine dependence: Status: Chronic Plan: Quit smoking. Patient counseled. Orders: Orders 12 Lead EKG performed by [facility]MS Today I49.9 - Cardiac arrhythmia, unspecified, I50.20 - Unspecified systolic (congestive) heart failure Plan Details Follow Up: 6 Weeks Coding Level of Care Code Off vis,new,level 4 Diagnoses Chest pain on exertion R07.9 Left ventricular systolic dysfunction (LVSD) I51.89 COPD (chronic obstructive pulmonary disease) J44.9 Nicotine dependence F17.200 Coding Level of Care Code Off vis,new,level 4 Diagnoses Chest pain on exertion R07.9 Left ventricular systolic dysfunction (LVSD) I51.89 COPD (chronic obstructive pulmonary disease) J44.9 Nicotine dependence F17.200 Clinical Quality Measures Falls Risk Screening/Assistive Devices Have you fallen in the past year?: No Cardiac Ejection fraction %: 41 11/16/24 1047 <Electronically signed by Tiffany Child MD> Date _ Tiffany Child MD Cosigner Signature: Date (if applicable) CC: ELKE Lucas ~ [employer] Work Phone: 1([phone] 211-574907-03-2025 Note Date of Service Date: 09/16/2024 Procedure: Lexiscan (regadenoson) chemical stress test Patient underwent a pharmacologic stress test using regadenoson. Total regadenoson dose of 0.4 mg was given as per protocol. The patient had a baseline heart rate of 67 bpm, which peaked at 96 bpm. This represents 57% of theage-predicted maximal heart rate. The patient had a baseline blood pressure of 137/90 mmHg and it changed to 108/74 mmHg after the regadenoson administration. The patient did experience shortness of breath and lightheadedness, which all resolved at the end of the test. The patient's baseline EKG showed normal sinus rhythm. During the stress, there were no EKG changessuggestive of ischemia. IMPRESSION: EKG portion of the Lexiscan stress test is negative for inducible ischemia. The results of the nuclear portion of the Lexiscan stress test will be reported separately. The EKGs were also reviewed by the attending physician. See addendum to this note by the attending physician for additional comments. Digitally Signed by ELA ASHLEY MD on 09/16/2024 01:56 PM [facility] [id number] Note* Exam Date Time Procedure Performing Provider Status 09/16/24 10:31 AM NM Myocardial Spect Rest/Stress CAMRON GERBER MD; Auth (Verified) [id number] ORIGINAL NM MYOCARDIAL SPECT STRESS/REST CLINICAL STATEMENT: Chest pain/anginal equiv, high CAD risk, not treadmill candidate TECHNIQUE: Lexiscan dose: 0.4 mg Radiopharmaceutical (stress): Tc-99m Sestamibi Dose:26.9 mCi Radiopharmaceutical (rest): Tc-99m Sestamibi Dose:8.3 mCi SPECT acquisition and processing Reconstruction and reorientation of SPECT images into short axis, vertical and horizontal long axisplanes Quantitative LVEF assessment COMPARISON:No previous study REPORT: The overall quality of the study is poor. Review of raw imaging demonstrates no significant motion during stress and rest image acquisition. Low-dose CT scan demonstrates no significant thoracic aortic or coronary artery calcifications. No significant extracardiac finding. Review of the SPECT perfusion images shows decreased radiotracer uptake of the inferior wall, oval corrected and attenuation corrected images during both rest and stress images. Decreased radiotraceruptake of the inferior wall is worse in stress images. Gated SPECT images shows that the LEFT ventricle is normal in size but reduced systolic function. The LVEF is 41% . Mild global hypokinesia. Transient ischemic dilatation (TID) Ratio-1.12 IMPRESSION: Technically challenging study. Within limitation of the study, no significant scar or ischemia LEFT ventricular systolic function is reduced with mild global hypokinesia. Calculated LVEF 41%. No previous studies available for comparison. EKG portion will be dictated separately. Interpreted By: Camron Gerber MD Preliminary Report By: Ela Ashley Electronically Signed By: Camron Gerber MD Dictated Date: 09/16/2024 11:20:57 AM Prelim Date: 09/16/2024 11:28:00 AM Sign Date: 09/16/2024 1:39:38 PM Ordering Provider:Brian Lucas [facility] [id number] Note Date of Service Date: 09/16/2024 Procedure: Lexiscan (regadenoson) chemical stress test Patient underwent a pharmacologic stress test using regadenoson. Total regadenoson dose of 0.4 mg was given as per protocol. The patient had a baseline heart rate of 67 bpm, which peaked at 96 bpm. This represents 57% of theage-predicted maximal heart rate. The patient had a baseline blood pressure of 137/90 mmHg and it changed to 108/74 mmHg after the regadenoson administration. The patient did experience shortness of breath and lightheadedness, which all resolved at the end of the test. The patient's baseline EKG showed normal sinus rhythm. During the stress, there were no EKG changessuggestive of ischemia. IMPRESSION: EKG portion of the Lexiscan stress test is negative for inducible ischemia. The results of the nuclear portion of the Lexiscan stress test will be reported separately. The EKGs were also reviewed by the attending physician. See addendum to this note by the attending physician for additional comments. Digitally Signed by ELA ASHLEY MD on 09/16/2024 01:56 PM [facility] [id number] Discharge summary [facility] Medical Records Department [address] [place] [address] Emergency Department Summary 07/02/24 MR#: [id number] Acct: [id number] Name: WENDI GRAHAM Rep #:[id number] : 1970 54 From: Henry Wilson MD PCP: Care Physician,No Primary Status :REG ER Location: ED HPI History of Present Illness HPI Narrative: 54-year-old male history of some type of cardiac arrhythmia for which he is currently on no medications for. States that he has had atraumatic right lower leg swelling around the ankle and lower calffor about 4 days started on Friday. No prior history. No history of cellulitis. No fever or chills. No chest pain or shortness of breath. He has never had a DVT. No recent travel, surgery or immobilization. No recent hospitalization. Chief Complaint: Edema Informant: patient and spouse/S.O. Occured/Mechanism Mechanism/Context: No injury and No blunt trauma Onset/Context/Timing Onset: Days Context: Gradual Onset Timing: Continuous Quality of Pain: Dull Current Severity: Mild Maximum Severity: Mild Associated Symptoms Associated Symptoms: Negative for Parasthesia, Weakness or Loss of Funtion Narrative Narrative: 54-year-old male with atraumatic right lower leg pain and swelling for 4 days. No history of cellulitis. No prior history of DVT or PE risk factors. Prior similar symptoms: No Recent Illness/Hospitalization: No PFSH PFS Medical History Arrhythmia Home Medications ?Medication ?Instructions ?Recorded ?Last Taken ?Type hydrocodone-acetaminophen 5-325mg 1 tab PO Q4H PRN PRN Pain ##20 11/19/13 Unknown Rx 5mg-325mg indomethacin 25 mg capsule 50 mg (2 x 25 mg) PO TIDCM ##20 11/19/13 Unknown Rx polyethylene glycol 3350 17 gram 17 g PO QHS #5 packet s 01/03/14 Unknown Rx oral powder packet cephalexin 500 mg capsule 500 mg PO Q6 #40 CAPSULES Unknown Rx Allergy/AdvReac Type Severity Reaction Status Date / Time No Known Allergies Allergy Verified 07/02/24 12:51 Social History Smoking Status: Current every day smoker tobacco type: cigarettes and e-cigarettes ROS ROS ED ROS Narrative Patient denies recent illness. Constitutional Constitutional ED: Denies chills or fever(s) Eyes Eyes: Denies blurry vision ENT ENT ED: Denies ear pain Cardiovascular Cardiovascular: Denies chest pain Respiratory/Chest Respiratory/Chest: Denies cough or dyspnea Gastrointestinal Gastrointestinal: Denies abdominal pain Genitourinary Genitourinary ED: Denies dysuria or hematuria Musculoskeletal Musculoskeletal: Denies arthralgias Integumentary Denies abscess or Abrasions Neurologic Neurologic: Denies headache(s) Psychiatric Psychiatric: Denies anxiety Endocrine Endocrinology: Denies polydipsia Hematologic/Lymphatic Hematologic/Lymphatic: Denies easy bleeding, easy bruising or lymphadenopathy Allergic/Immunologic Allergic/Immunologic ED: Denies mouth swelling, tongue swelling or urticaria EXAM Physical Exam Narrative Exam Narrative: Well-appearing middle-age male. Vital signs stable afebrile. No acute distress. Significant other present in the room. H EENT exam pupils round reactive light. Moist membranes. Neck nontender no lymphadenopathy. Lungs clear to auscultation bilaterally. Heart tachycardic 109 no murmur. Chest wallandribs nontender. Abdomen soft nontender. Moving all 4 extremities. Right lower leg has mild edema atthe distal half of the lower leg. Minimally tender. Really no significant redness. Only minimal warmth. Not classic for cellulitis. Normal DP pulse. Able to dorsi and plantarflexion bilaterally. Calfis nontender. There is no cords. There is no inguinal lymphadenopathy. There is no streaking or redness above the knee. Both lower extremities are neurovascularly intact. Neurologically she is awake and alert. Answering questions following commands. Const Vital Signs: 07/02/24 12:51 Temperature 96.8 F L Temperature Source Temporal Pulse Rate 109 H Respiratory Rate 15 Blood Pressure 148/84 H Blood Pressure Mean 105 Pulse Ox 99 Oxygen Delivery Method Room Air Positive well nourished and well developed; Negative for obese, cachectic, contractures or unkempt General Appearance ED: well developed; Negative for unkempt, cachectic or contractures Nutritional Appearance: Negative for cachectic or obese HEENT Reports moist mucous membranes normocephalic and atraumatic Eyes PERRL Neck full ROM and supple Chest Wall inspection of chest normal and palpation of chest normal Resp normal respiratory effort, no retractions and clear to auscultation bilaterally Auscultation: Negative for rales, rhonchi, wheezes or diminished lung sounds Cardio regular rhythm, S1 normal heart sound, S2 normal heart sound and no murmurs; Negative for regular rate Rate: tachycardic GI non-tender, non-distended and no masses Inspection: Negative for abdominal distention Auscultation: normoactive bowel sounds Palpation: soft; Negative for tender, guarding or rebound tenderness present Back/Spine no CVA tenderness General Back: Negative for CVA tenderness or swelling Cervical Spine: Negative for cervical spine tenderness Thoracic Spine / Upper Back: Negative for thoracic spinal tenderness Lumbar Spine / Lower Back: Negative for lumbar spinal tenderness Extremity full ROM; Negative for normal to inspection Extremity Narrative: Right lower extremity lower edema at the distal third of the lower leg ankle. Neurovascular intact.Not hot. Only minimally tender. No lymphangitic streaking. No inguinal lymphadenopathy. Looks more like edema than cellulitis. There is no calf tenderness or cord. Normal DP pulse. General Extremety ED: Yes edema; Negative for cyanosis General Extremity: edema; Negative for cyanosis Neuro oriented x3, CN's II-XII intact bilaterally, moves all extremities and no sensory deficits noted Sensorium / Orientation: alert, oriented to person, oriented to place and oriented to time; Negative for orientation impaired, confused, lethargic or stuporous Psych mental status grossly normal Appearance: Negative for unkempt Mood & Affect: Negative for anxious Skin no wounds Lesions: no lesions Rashes: no rashes Trauma: Negative for abrasion, laceration or puncture MDM MDM MDM Narrative Medical decision making narrative: 54-year-old male with atraumatic right lower leg swelling. Rule out DVT PE versus cellulitis versusvenous insufficiency or other. Ultrasound and labs. Iwill do an EKG due to this history of dysrhythmia. Repeat exam patient is doing well at 2:51 PM. No change. We discussed his testresults. This to be treated as a cellulitis. He will be given a dose of Keflexhere. Placed on Keflex 5 mg 4 times daily for 10 days. Follow-up with his primary care physician. Return if worse. He and his are comfortable with the plan. History & Record Review Discussion w/independent historian: Patient Additional record(s) reviewed:: Prior inpatient record, Prior outpatient record,Prior ED visit and Prior labs Lab Data Attestation: I reviewed the patient's lab results. Lab results narrative: Venous ultrasound assay of the right lower extremity was negative. No DVT per the coil repair technician. CBC shows an elevated white count of 14.3. H&H 15 and 45. Platelets 403. Electrolytes unremarkable. Gap 10. Normal BUN of 14 creatinine 0.99. Glucose 109. Labs: Laboratory Results - last 24 hr 07/02/24 13:21 WBC 14.3 H RBC 5.28 Hgb 15.0 Hct 45.1 MCV 85.4 MCH 28.4 MCHC 33.3 RDW Std Deviation 42.3 RDW Coeff of Betsy 13.4 Plt Count 403 MPV 9.0 Immature Gran % (Auto) 0.300 Neut % (Auto) 78.9 H Lymph % (Auto) 11.5 L [place] % (Auto) 6.4 Eos % (Auto) 2.4 Baso % (Auto) 0.5 Absolute Neuts (auto) 11.3 H Absolute Lymphs (auto) 1.64 Nucleated RBC % 0 Sodium 138 Potassium 4.1 Chloride 102 Carbon Dioxide 26.0 Anion Gap 10 BUN 14 Creatinine 0.99 Estim Creat Clear Calc 89.10 Est GFR (MDRD) Non-Af 91 BUN/Creatinine Ratio 14.1 Glucose 109 H Calcium 9.7 Rhythm Strip Rhythm Strip: Sinus Rhythm Rate: 81 Ectopy: None EKG Initial EKG: Attestation: I personally reviewed and interpreted this EKG as follows: Interpretation: Sinus Rhythm and No Acute Injury Pattern Comments: Normal sinus rhythm rate 81. No acute signs of MT or ischemia. No change from prior. Discharge Plan Triage Chief Complaint: Edema ED Provider: Henry Wilson Dx/Rx/DC Orders Clinical Impression: Cellulitis Instructions: ED Cellulitis Prescriptions: New cephalexin 500 mg capsule 500 mg PO Q6 Qty: 40 0RF No Action hydrocodone-acetaminophen 1 TABLET tablet 1 tab PO Q4H PRN PRN (Reason: Pain) Qty: 20 0RF indomethacin 25 MG capsule 50 mg PO TIDCM Qty: 20 0RF polyethylene glycol 3350 17 GM powder in packet 17 g PO QHS Qty: 5 0RF Primary Care Provider: Care Physician,No Primary Referrals: Lul Dale MD [Med Staff - Pattern Data Operator] - As soon as possible Care Physician,No Primary [Primary Care Provider] - Activity Restrictions/Additional Instructions: There is no signs of a blood clot in your leg. This appears to be an infection of the skin called cellulitis. He will be started on antibiotic Keflex. 1 pill 4 times a day. Once you get itfilled try to get 2 more dosages in today. Follow-up with your doctor if not improving return if a lot worse or you developa fever if it spreads up your leg or you are feeling worse. Motrin and Tylenol for pain. Print Language: Spanish Disposition Disposition: Home, Self Care What to do if you have Problems For any increased pain, shortness of breath, bleeding, nausea or vomiting, chestpain, or any unexpected problems, contact your Primary Care Provider. Call [facility] ([phone]) or report tothe closest Emergency Room. Call 911 if necessary. 07/02/24 2014 Cosigner Signature (if applicable): CC: No Primary Care Physician ~ Signed [facility]04-18-2025 Discharge summary Author Henry Wilson [facility] Note Date/Time July 02, 2024 2:5 9pm [facility] System Medical Records Department [address] [place] [address] Emergency Department Summary 07/02/24 MR#: [id number] Acct: [id number] Name: WENDI GRAHAM Rep #:[id number] : 1970 54 From: Henry Wilson MD PCP: Care Physician,No Primary Status :REG ER Location: ED HPI History of Present Illness HPI Narrative: 54-year-old male history of some type of cardiac arrhythmia for which he is currently on no medications for. States that he has had atraumatic right lower leg swelling around the ankle and lower calf for about 4 days started on Friday. No prior history. No history of cellulitis. No fever or chills. No chest pain or shortness of breath. He has never had a DVT. No recent travel, surgery or immobilization. No recent hospitalization. Chief Complaint: Edema Informant: patient and spouse/S.O. Occured/Mechanism Mechanism/Context: No injury and No blunt trauma Onset/Context/Timing Onset: Days Context: Gradual Onset Timing: Continuous Quality of Pain: Dull Current Severity: Mild Maximum Severity: Mild Associated Symptoms Associated Symptoms: Negative for Parasthesia, Weakness or Loss of Funtion Narrative Narrative: 54-year-old male with atraumatic right lower leg pain and swelling for 4 days. No history of cellulitis. No prior history of DVT or PE risk factors. Prior similar symptoms: No Recent Illness/Hospitalization: No PFSH PFSH Medical History Arrhythmia Home Medications ?Medication ?Instructions ?Recorded ?Last Taken ?Type hydrocodone-acetaminophen 5-325mg 1 tab PO Q4H PRN PRN Pain ##20 11/19/13 Unknown Rx 5mg-325mg indomethacin 25 mg capsule 50 mg (2 x 25 mg) PO TIDCM ##20 11/19/13 Unknown Rx polyethylene glycol 3350 17 gram 17 g PO QHS #5 packet s 01/03/14 Unknown Rx oral powder packet cephalexin 500 mg capsule 500 mg PO Q6 #40 CAPSULES Unknown Rx Allergy/AdvReac Type Severity Reaction Status Date / Time No Known Allergies Allergy Verified 07/02/24 12:51 Social History Smoking Status: Current every day smoker tobacco type: cigarettes and e- cigarettes ROS ROS ED ROS Narrative Patient denies recent illness. Constitutional Constitutional ED: Denies chills or fever(s) Eyes Eyes: Denies blurry vision ENT ENT ED: Denies ear pain Cardiovascular Cardiovascular: Denies chest pain Respiratory/Chest Respiratory/Chest: Denies cough or dyspnea Gastrointestinal Gastrointestinal: Denies abdominal pain Genitourinary Genitourinary ED: Denies dysuria or hematuria Musculoskeletal Musculoskeletal: Denies arthralgias Integumentary Denies abscess or Abrasions Neurologic Neurologic: Denies headache(s) Psychiatric Psychiatric: Denies anxiety Endocrine Endocrinology: Denies polydipsia Hematologic/Lymphatic Hematologic/Lymphatic: Denies easy bleeding, easy bruising or lymphadenopathy Allergic/Immunologic Allergic/Immunologic ED: Denies mouth swelling, tongue swelling or urticaria EXAM Physical Exam Narrative Exam Narrative: Well-appearing middle-age male. Vital signs stable afebrile. No acute distress. Significant other present in the room. H EENT exam pupils round reactive light. Moist membranes. Neck nontender no lymphadenopathy. Lungs clear to auscultation bilaterally. Heart tachycardic 109 no murmur. Chest walland ribs nontender. Abdomen soft nontender. Moving all 4 extremities. Right lower leg has mild edema at the distal half of the lower leg. Minimally tender. Really no significant redness. Only minimal warmth. Not classic for cellulitis. Normal DP pulse. Able to dorsi and plantarflexion bilaterally. Calf is nontender. There is no cords. There is no inguinal lymphadenopathy. There is no streaking or redness above the knee. Both lower extremities are neurovascularly intact. Neurologically she is awake and alert. Answering questions following commands. Const Vital Signs: 07/02/24 12:51 Temperature 96.8 F L Temperature Source Temporal Pulse Rate 109 H Respiratory Rate 15 Blood Pressure 148/84 H Blood Pressure Mean 105 Pulse Ox 99 Oxygen Delivery Method Room Air Positive well nourished and well developed; Negative for obese, cachectic, contractures or unkempt General Appearance ED: well developed; Negative for unkempt, cachectic or contractures Nutritional Appearance: Negative for cachectic or obese HEENT Reports moist mucous membranes normocephalic and atraumatic Eyes PERRL Neck full ROM and supple Chest Wall inspection of chest normal and palpation of chest normal Resp normal respiratory effort, no retractions and clear to auscultation bilaterally Auscultation: Negative for rales, rhonchi, wheezes or diminished lung sounds Cardio regular rhythm, S1 normal heart sound, S2 normal heart sound and no murmurs; Negative for regular rate Rate: tachycardic GI non-tender, non-distended and no masses Inspection: Negative for abdominal distention Auscultation: normoactive bowel sounds Palpation: soft; Negative for tender, guarding or rebound tenderness present Back/Spine no CVA tenderness General Back: Negative for CVA tenderness or swelling Cervical Spine: Negative for cervical spine tenderness Thoracic Spine / Upper Back: Negative for thoracic spinal tenderness Lumbar Spine / Lower Back: Negative for lumbar spinal tenderness Extremity full ROM; Negative for normal to inspection Extremity Narrative: Right lower extremity lower edema at the distal third of the lower leg ankle. Neurovascular intact. Not hot. Only minimally tender. No lymphangitic streaking. No inguinal lymphadenopathy. Looks more like edema than cellulitis. There is no calf tenderness or cord. Normal DP pulse. General Extremety ED: Yes edema; Negative for cyanosis General Extremity: edema; Negative for cyanosis Neuro oriented x3, CN's II-XII intact bilaterally, moves all extremities and no sensory deficits noted Sensorium / Orientation: alert, oriented to person, oriented to place and oriented to time; Negative for orientation impaired, confused, lethargic or stuporous Psych mental status grossly normal Appearance: Negative for unkempt Mood & Affect: Negative for anxious Skin no wounds Lesions: no lesions Rashes: no rashes Trauma: Negative for abrasion, laceration or puncture MDM MDM MDM Narrative Medical decision making narrative: 54-year-old male with atraumatic right lower leg swelling. Rule out DVT PE versus cellulitis versus venous insufficiency or other. Ultrasound and labs. Iwill do an EKG due to this history of dysrhythmia. Repeat exam patient is doing well at 2:51 PM. No change. We discussed his testresults. This to be treated as a cellulitis. He will be given a dose of Keflexhere. Placed on Keflex 5 mg 4 times daily for 10 days. Follow-up with his primary care physician. Return if worse. He and his are comfortable with the plan. History & Record Review Discussion w/independent historian: Patient Additional record(s) reviewed:: Prior inpatient record, Prior outpatient record,Prior ED visit and Prior labs Lab Data Attestation: I reviewed the patient's lab results. Lab results narrative: Venous ultrasound assay of the right lower extremity was negative. No DVT per the coil repair technician. CBC shows an elevated white count of 14.3. H&H 15 and 45. Platelets 403. Electrolytes unremarkable. Gap 10. Normal BUN of 14 creatinine 0.99. Glucose 109. Labs: Laboratory Results - last 24 hr 07/02/24 13:21 WBC 14.3 H RBC 5.28 Hgb 15.0 Hct 45.1 MCV 85.4 MCH 28.4 MCHC 33.3 RDW Std Deviation 42.3 RDW Coeff of Betsy 13.4 Plt Count 403 MPV 9.0 Immature Gran % (Auto) 0.300 Neut % (Auto) 78.9 H Lymph % (Auto) 11.5 L [place] % (Auto) 6.4 Eos % (Auto) 2.4 Baso % (Auto) 0.5 Absolute Neuts (auto) 11.3 H Absolute Lymphs (auto) 1.64 Nucleated RBC % 0 Sodium 138 Potassium 4.1 Chloride 102 Carbon Dioxide 26.0 Anion Gap 10 BUN 14 Creatinine 0.99 Estim Creat Clear Calc 89.10 Est GFR (MDRD) Non-Af 91 BUN/Creatinine Ratio 14.1 Glucose 109 H Calcium 9.7 Rhythm Strip Rhythm Strip: Sinus Rhythm Rate: 81 Ectopy: None EKG Initial EKG: Attestation: I personally reviewed and interpreted this EKG as follows: Interpretation: Sinus Rhythm and No Acute Injury Pattern Comments: Normal sinus rhythm rate 81. No acute signs of MT or ischemia. No change from prior. Discharge Plan Triage Chief Complaint: Edema ED Provider: Henry Wilson Dx/Rx/DC Orders Clinical Impression: Cellulitis Instructions: ED Cellulitis Prescriptions: New cephalexin 500 mg capsule 500 mg PO Q6 Qty: 40 0RF No Action hydrocodone-acetaminophen 1 TABLET tablet 1 tab PO Q4H PRN PRN (Reason: Pain) Qty: 20 0RF indomethacin 25 MG capsule 50 mg PO TIDCM Qty: 20 0RF polyethylene glycol 3350 17 GM powder in packet 17 g PO QHS Qty: 5 0RF Primary Care Provider: Care Physician,No Primary Referrals: Lul Dale MD [Med Staff - Pattern Data Operator] - As soon as possible Care Physician,No Primary [Primary Care Provider] - Activity Restrictions/Additional Instructions: There is no signs of a blood clot in your leg. This appears to be an infection of the skin called cellulitis. He will be started on antibiotic Keflex. 1 pill 4 times a day. Once you get itfilled try to get 2 more dosages in today. Follow-up with your doctor if not improving return if a lot worse or you developa fever if it spreads up your leg or you are feeling worse. Motrin and Tylenol for pain. Print Language: Spanish Disposition Disposition: Home, Self Care What to do if you have Problems For any increased pain, shortness of breath, bleeding, nausea or vomiting, chestpain, or any unexpected problems, contact your Primary Care Provider. Call [facility] ([phone]) or report to the closest Emergency Room. Call 911 if necessary. 07/02/24 1026 <Electronically signed by Henry Wilson MD> Cosigner Signature (if applicable): CC: No Primary Care Physician ~ Signed [facility] Work Phone: [phone]) 873-774302-19-2024 NoteHNO ID: [id number] Author: FREDDY HENRY PA-C Service: ? Author Type: Physician Supervisor Personnel Clerks Type: Progress Notes Filed: 05/05/2023 10:38 Note Text: This note was created using [employer]. Kiersten Graham is a 53 year old male. HPI Presents with a chief complaint of sores on his mouth and chin over the past 2 days. He states he did pop 1 yesterday. He did shave his wellington about a week ago. States it was a new razor but used a new shave gel. He does have a history of MRSA about 5 years ago. Denies fever or chills. No new soaps or detergents otherwise. Review of Systems Constitutional: Negative. HENT: Rash on chin and around mouth Respiratory: Negative. Cardiovascular: Negative. Gastrointestinal: Negative. Genitourinary: Negative. Musculoskeletal: Negative. All other systems reviewed and are negative. PAST MEDICAL HISTORY Diagnosis Date Tobacco abuse Current Outpatient Medications Medication Sig Dispense Refill ibuprofen (MOTRIN) 600 mg tablet Take 1 tablet by mouth every 6 hours as needed. FOR PAIN. 0 doxycycline (VIBRA-TABS) 100 mg tablet Take 1 tablet by mouth two times a day for 7 days. 14 tablet 0 mupirocin (BACTROBAN) 2 % ointment Apply to affected area three times a day for 7 days. 22 g 0 meloxicam (MOBIC) 15 mg tablet Take 1 tablet by mouth once daily. (Patient not taking: Reported on 05/05/2023) 30 tablet 2 No current facility-administered medications for this visit. PAST SURGICAL HISTORY Procedure Laterality Date NONE FAMILY HISTORY Problem Relation Age of Onset Cancer Father colon CA None Mother Social History Tobacco Use Smoking status: Every Day Packs/day: 0.50 Years: 30.00 Additional pack years: 0.00 Total pack years: 15.00 Types: Cigarettes Smokeless tobacco: Former Substance Use Topics Alcohol use: Yes Alcohol/week: 1.0 standard drink of alcohol Types: 1 Cans of Beer (12oz) per week Drug use: No Objective BP 110/80 Pulse 116 Temp 36.4 ?C (97.6 ?F) (Tympanic) Resp 16 Wt 80.6 kg (177 lb 9.6 oz) SpO2 100% BMI 27.00 kg/m? Physical Exam Vitals reviewed. Constitutional: Appearance: Normal appearance. HENT: Head: Normocephalic and atraumatic. Comments: Patient has multiple erythematous raised pustules in his wellington consistent with folliculitis. Skin: General: Skin is warm and dry. Neurological: Mental Status: He is alert. Assessment and Plan ASSESSMENT/PLAN: 1. Folliculitis - ICD9: 704.8, ICD10: L73.9 Will treat with doxycycline to cover for MRSA as he does have a history of this. Also given mupirocin ointment. Follow-up if not improving. Patient agreeable. [facility] History of Present illness Narrative* Freddy Henry PA-C - 05/05/2023 10:35 AM EST Images from the original note were not included. This note was created using [employer]. Kiersten Graham is a 53 year old male. HPI Presents with a chief complaint of sores on his mouth and chin over the past 2 days. He states he did pop 1 yesterday. He did shave his wellington about a week ago. States it was a new razor but used a new shave gel. He does have a history of MRSA about 5 years ago. Denies fever or chills. No new soaps or detergents otherwise. Review of Systems Constitutional: Negative. HENT: Rash on chin and around mouth Respiratory: Negative. Cardiovascular: Negative. Gastrointestinal: Negative. Genitourinary: Negative. Musculoskeletal: Negative. All other systems reviewed and are negative. PAST MEDICAL HISTORY Diagnosis Date Tobacco abuse Current Outpatient Medications Medication Sig Dispense Refill ibuprofen (MOTRIN) 600 mg tablet Take 1 tablet by mouth every 6 hours as needed. FOR PAIN. 0 doxycycline (VIBRA-TABS) 100 mg tablet Take 1 tablet by mouth two times a day for 7 days. 14 tablet0 mupirocin (BACTROBAN) 2 % ointment Apply to affected area three times a day for 7 days. 22 g 0 meloxicam (MOBIC) 15 mg tablet Take 1 tablet by mouth once daily. (Patient not taking: Reported on 05/05/2023) 30 tablet 2 No current facility-administered medications for this visit. PAST SURGICAL HISTORY Procedure Laterality Date NONE FAMILY HISTORY Problem Relation Age of Onset Cancer Father colon CA None Mother Social History Tobacco Use Smoking status: Every Day Packs/day: 0.50 Years: 30.00 Additional pack years: 0.00 Total pack years: 15.00 Types: Cigarettes Smokeless tobacco: Former Substance Use Topics Alcohol use: Yes Alcohol/week: 1.0 standard drink of alcohol Types: 1 Cans of Beer (12oz) per week Drug use: No Objective BP 110/80 Pulse 116 Temp 36.4 C (97.6 F) (Tympanic) Resp 16 Wt 80.6 kg (177 lb 9.6 oz) SpO2 100% BMI 27.00 kg/m Physical Exam Vitals reviewed. Constitutional: Appearance: Normal appearance. HENT: Head: Normocephalic and atraumatic. Comments: Patient has multiple erythematous raised pustules in his wellington consistent with folliculitis. Skin: General: Skin is warm and dry. Neurological: Mental Status: He is alert. Assessment and Plan ASSESSMENT/PLAN: 1. Folliculitis - ICD9: 704.8, ICD10: L73.9 Will treat with doxycycline to cover for MRSA as he does have a history of this. Also given mupirocin ointment. Follow-up if not improving. Patient agreeable. Freddy Henry PA-C [facility] [place] [facility] Plan note Future Appointments Appointment Date:09/21/2024 10:00:00 AM Scheduled Provider: Location:[facility] Appointment Type:PF Complete PFT w/Bronchodilator Appointment Date:10/06/2024 10:00:00 AM Scheduled Provider:BRIAN LUCAS Location:[facility] Appointment Type: Wellness Annual [facility] Evaluation + Plan note Future Appointments Appointment Date:10/06/2024 10:00:00 AM Scheduled Provider:BRIAN LUCAS Location:[facility] Appointment Type:[facility] Evaluation note* Diagnosis Folliculitis- Primary Other specified disease of hair and hair follicles documented in this encounter [facility] noteNo assessment information availableWAdams [facility] Work Phone: Evaluation note* Diagnosis Onset Date Resolution Status Admit Date Left ventricular systolic dysfunction (LVSD) acute November 9:53am Chest pain on exertion chronic Se ptember 2024 9:53am COPD (chronic obstructive pulmonary disease) chronic November 9:53am Nicotine dependence chronic Septe mber 2024 9:53am [facility] Work Phone: Hospital course Narrative No data available for this section [facility] Hospital Discharge instructions Additional Instructions There is no signs of a blood clot in your leg. This appears to be an infection of the skin called cellulitis. He will be started on antibiotic Keflex. 1 pill 4 times a day. Once you get it filled try to get 2 more dosages in today. Follow-up with your doctor if not improving return if a lot worse or you develop a fever if it spreads up your leg or you are feeling worse. Motrin and Tylenol for pain. [facility] Work Phone: Hospital Discharge instructions No data available for this section [facility] Progress note No data available for this section [facility] Reason for referral (narrative)No reason for referral information availableWAdams County Regional [facility] Work Phone: Summary Purpose Family History No Family History Records Found Relationship Condition Age at Onset Recorded Date/T shahid mother Alzheimer's dementia Unknown Malignant melanoma of skin Unknown grandmother Chronic obstructive pulmonary disease Unk nown father Malignant neoplasm of colon Unknown Advance Directives No Advanced Directives Records Found Advance Directive Response Recorded Date/ Time Living Will No July 02, 2024 1:12pm Do you have a Healthcare Power of [place]? No July 02, 2024 1:12pm Advance Directive Response Recorded Date/ Time Living Will No July 02, 2024 1:12pm Do you have a Healthcare Power of [place]? No July 02, 2024 1:12pm Do you have a Healthcare Power of [place]? Yes August 26, 2024 7:12pm Advance Directive Response Recorded Date/ Time Do you have a Healthcare Power of [place]? Yes August 26, 2024 7:12pm Chief Complaint and Reason for Visit Chief Complaint Admit Date EDEMA July 02, 2024 12: 50pm Chief Complaint Admit Date EDEMA July 02, 2024 12: 50pm RT LEG SWELLING July 02, 2024 1:2 0pm CELLULITIS August 26, 2024 5:01 pm Chief Complaint Admit Date CELLULITIS August 26, 2024 5:01 pm HFrEF ([place]) November 16, 2024 9:53am Reason for Visit Admit Date Left ventricular systolic dysfunction (L VSD) November 16, 2024 9:53am Chest pain on exertion November 16 9:53am COPD (chronic obstructive pulmonary dise ase) Marti 2nd, 2025 9:53am Nicotine dependence November 16, 2024 9:53am Additional Source Comments (unrecognized sect ion and content) No Status Records FoundNo Status Records FoundNo Status Records FoundNo Status Records FoundNo Status Records Found INFORMATION SOURCE (unrecogn ized section and content) DATE CREATED AUTHOR 09/09/2017 Romario Corado [facility] DATE CREATED AUTHOR AUTHOR'S ORGANIZ ATION 05/05/2023 [facility] DATE CREATED AUTHOR AUTHOR'S ORGANIZ ATION 09/22/2024 [facility] DATE CREATED AUTHOR AUTHOR'S ORGANIZ ATION 10/16/2024 [facility] DATE CREATED AUTHOR AUTHOR'S ORGANIZ ATION 01/21/2025 [facility] Source Comments (unrecognize d section and content) In the event this informatio n is protected by the Federal Confidentiality of Alcohol and Drug Abuse Patient Records regulations: The Federal rules restrict any use of the information to criminally investigate or prosecute any alcohol or drug abuse patient.[facility] Reason for Visit (unrecogniz ed section and content) Reason Comments Mouth/Lip Problem Sores on mouth and c hin x 2 days Care Teams (unrecognized sec tion and content) Team Status: Active Member Role Status Dates No Primary Care Physician Primary Care Provider Active Team Status: Inactive Member Role Status Dates No Primary Care Physician Primary Care Provider Active Start: July 02, 2024 End: July 02, 2024 Dr. Henry Wilson MD Referring Provider Active S tart: July 02, 2024 End: July 02, 2024 Dr. Henry Wilson MD Emergency Provider Active S tart: July 02, 2024 End: July 02, 2024 Team Status: Inactive Member Role Status Dates No Primary Care Physician Primary Care Provider Active Start: July 02, 2024 End: July 02, 2024 Dr. Henry Wilson MD Attending Provider Active S tart: July 02, 2024 End: July 02, 2024 Dr. Henry Wilson MD Referring Provider Active S tart: July 02, 2024 End: July 02, 2024 Dr. Henry Wilson MD Emergency Provider Active S tart: July 02, 2024 End: July 02, 2024 Team Status: Active Member Role Status Dates Dr. Nicholas Huerta MD Attending Provider Active Start: July 02, 2024 Dr. Henry Wilson MD Referring Provider Active S tart: July 02, 2024 Team Status: Inactive Member Role Status Dates No Primary Care Physician Primary Care Provider Active Start: August 26, 2024 End: August 26, 2024 Dr. Reyes Sewell DO Emergency Provider Active Start: August 26, 2024 End: August 26, 2024 Team Status: Active Member Role/Relationship Status Dates Brian Lucas FIRST LEVELER, FIRST LEVELER-C Primary Care Provider Active Team Status: Inactive Member Role/Relationship Status Dates No Primary Care Physician Primary Care Provider Active Start: August 26, 2024 End: August 26, 2024 Dr. Reyes Sewell DO Attending Provider Active Start: August 26, 2024 End: August 26, 2024 Dr. Reyes Sewell DO Emergency Provider Active Start: August 26, 2024 End: August 26, 2024 Team Status: Inactive Member Role/Relationship Status Dates Brian Lucas FIRST LEVELER, FIRST LEVELER-C Primary Care Provider Active Start: November 16, 2024 End: November 16, 2024 Brian Lucas FIRST LEVELER, FIRST LEVELER-C Referring Provider Active S tart: November 16, 2024 End: November 16, 2024 Dr. Tiffany Child MD Attending Provider Active Start: November 16, 2024 End: November 16, 2024 Goals (unrecognized section and content) Goals may be documented in a n alternate sectionGoals may be documented in an alternate section No data available for this section No data available for this sectionGoals may be documented in an alternate section FOR RECORDS PERTAINING TO PATIENTS WHO ARE OR HAVE BEEN ENROLLED IN A CHEMICAL DEPENDENCY/SUBSTANCEABUSE PROGRAM, SOME INFORMATION MAY BE OMITTED. This clinical summary was aggregated from multiple sources. Caution should be exercised in using it in the provision of clinical care. This summary normalizes information from multiple sources, and as a consequence, information in this document may materially change the coding, format and clinical context of patient data. In addition, data may be omitted in some cases. CLINICAL DECISIONS SHOULD BE BASED ON THE PRIMARY CLINICAL RECORDS. [facility] [employer] [facility]. provides no warranty or guarantee of the accuracy or completeness of information in this document.
--- NOTE | 2025-02-03 07:52 | CCTA.WCONT ---
CCTA w/Cont Coronary Arteries Date of Study:: 02/02/25 Chest pain Coronary Calcium Scoring: High-resolution Computed Tomographic imaging of the chest was performed on [02/02/2025], with particular attention paid to the coronary arteries. Intravenous contrast agent was administered per protocol and images reconstructed and displayed. LEFT MAIN CORONARY ARTERY: Arises from the left main coronary cusp with no significant stenosis or calcification present [] LEFT ANTERIOR DESCENDING CORONARY ARTERY: Arises from the left main coronary artery and gives off 2 diagonal branches and then traverses the interventricular septum towards the apex of the ventricle. No significant stenosis is noted. [] LEFT CIRCUMFLEX CORONARY ARTERY: Nondominant vessel with no significant atherosclerotic plaquing or stenosis noted [] RIGHT CORONARY ARTERY: Dominant right coronary artery with no significant atherosclerotic plaquing or stenosis present. Distally it divides into posterior descending artery and posterolateral vessel. [] THORACIC AORTA: [] PULMONARY ARTERY: [] LEFT ATRIUM/APPENDAGE: [] MITRAL VALVE: [] AORTIC VALVE: [] LEFT VENTRICLE: [] CORONARY CALCIUM SCORE: [] Calcium Scoring Interpretation: Different methods to categorize the overall amount of coronary plaque. Overall amount CAC SIS Visual of coronary plaque P1 Mild -100 <2 1-2 vessels with mild amount of plaque P2 Moderate 101-300 3-4 1-2 vessels with moderate amount, 3 vessels with mild amount of plaque P3 Severe 301-999 5-7 3 vessels with moderate amount, 1 vessel with severe amount of plaque P4 Extensive >1000 >8 2-3 vessels with severe amount of plaque Conclusion: No angiographically significant stenosis noted in this vessel.
== END | disposition home or self-care (01) ==
LOC: CT 12:51
PROVIDERS: PCP Nurse Practitioner Primary Care; Referring Provider Internal Medicine Cardiovascular Disease; Visit Provider Internal Medicine Cardiovascular Disease
DX: M25.50 Pain in unspecified joint (principal)
CPT/HCPCS: 75574; 76380; 96374; Q9967

== ENCOUNTER → 2025-02-15 | Outpatient (CLI) | payer MEDICAID, SELFPAY ==
--- NOTE | 2025-02-15 06:56 | ECHOCS_ITS ---
Reason For Study Reason For Study: ARRHYTHMIA, CHEST PAIN Procedure This was a 2D Doppler, Color Flow transthoracic echocardiogram. The study was technically difficult. Due to COPD. Contrast injection was performed. Exam performed in department. Left Ventricle Normal size and thickness. Mild inferior and posterior hypokinesis. Estimated LVEF 50%. Stage I diastolic dysfunction. Right Ventricle Normal right ventricle. Atria The left and right atria are normal. Mitral Valve Moderate posteriorly directed eccentric mitral valve regurgitation. Tricuspid Valve Trivial tricuspid valve insufficiency. Unable to estimate RV systolic pressure due to insufficient tricuspid regurgitant envelope. Aortic Valve Trisinus/trileaflet aortic valve. Pulmonic Valve The pulmonic valve is not well visualized. Great Vessels The aortic root is not well visualized. Pericardium/Pleural No pericardial effusion. Medication 20 gauge I.V. with prn adaptor inserted into left arm. Diluted definity 2.5ml given slow IV push to enhance endocardial definition. MMode/2D Measurements & Calculations LVIDd: 5.3 cm IVSd: 0.72 cm Ao root diam: 3.0 cm LVIDs: 4.0 cm LVPWd: 0.58 cm RVDd: 3.8 cm FS: 25.4 % LAV(MOD-bp): 43.3 ml LVAd ap4: 23.4 cm2 LVAd ap2: 26.8 cm2 LAV(MOD-bp) Indexed: 22.8 ml/m2 LVLd ap4: 7.6 cm LVLd ap2: 7.9 cm LAV(MOD-sp2): 47.3 ml EDV(MOD-sp4): 61.5 ml EDV(MOD-sp2): 74.8 ml LAV(MOD-sp4): 38.0 ml EDV(sp4-el): 62.4 ml EDV(sp2-el): 77.3 ml LVAs ap4: 14.7 cm2 LVAs ap2: 17.8 cm2 LVLs ap4: 6.5 cm LVLs ap2: 6.9 cm ESV(MOD-sp4): 28.2 ml ESV(MOD-sp2): 38.0 ml ESV(sp4-el): 28.4 ml ESV(sp2-el): 39.0 ml EF(MOD-sp4): 54.2 % EF(MOD-sp2): 49.3 % EF(sp4-el): 54.5 % SV(MOD-sp4): 33.3 ml SV(MOD-sp2): 36.8 ml SV(sp4-el): 34.0 ml SI(MOD-sp4): 17.6 ml/m2 SI(MOD-sp2): 19.4 ml/m2 LA A4 area: 15.0 cm2 LA dimension(2D): 3.3 cm RA A4 area: 10.0 cm2 TAPSE: 1.8 cm Time Measurements MV dec time: 0.29 sec Doppler Measurements & Calculations MV E max saul: 46.2 cm/sec Lat Peak E' Saul: 10.6 cm/sec Med Peak E' Saul: 11.3 cm/sec MV A max saul: 72.1 cm/sec E/E' lat: 4.3 E/E' med: 4.1 MV E/A: 0.64 MV V2 max: 79.8 cm/sec MV P1/2t max saul: 57.2 cm/sec Ao V2 max: 128.0 cm/sec MV max P.5 mmHg MV P1/2t: 43.4 msec Ao max P.6 mmHg MV V2 mean: 47.4 cm/sec MV dec slope: 385.8 cm/sec2 Ao V2 mean: 83.2 cm/sec MV mean P.0 mmHg MVA(P1/2t): 5.1 cm2 Ao mean P.3 mmHg MV V2 VTI: 15.8 cm Ao V2 VTI: 25.8 cm AV (velocity ratio): 0.70 LV V1 max: 100.4 cm/sec PA V2 max: 109.0 cm/sec LV V1 max P.0 mmHg LV V1 mean P.9 mmHg LV V1 mean: 63.0 cm/sec LV V1 VTI: 18.1 cm ECHO/Echo Complete W/ Contrast Interpretation Summary Mild inferior and posterior hypokinesis. Estimated LVEF 50%. Stage I diastolic dysfunction. Moderate posteriorly directed eccentric mitral valve regurgitation. Ordering Physician: Tiffany Child Referring Physician: Dawson Motta Performed By: Julia Hernandez RDCS, RVT
--- OUTSIDE RECORDS SUMMARY | 2025-02-15 07:09 | XMS RPT_ITS | CCD ---
Author Organization [facility] CliniSyct Care Team Providers Care Bioinformatics Support Specialist Name Role Phone RODRIGUEZ, KENY DO Unavailable [...] Unavailable Dr. Henry Wilson MD Referring Provider [phone] Dr. Henry Wilson MD Emergency Provider [phone] Dr. Henry Wilson MD Attending Provider Dr. Nicholas Huerta MD Attending Provider Dr. Reyes Sewell DO Emergency Provider SHAYY AUTOMATION CONSULTANT-PURLER, BRIAN Primary Care Physician [phone] BALTES AUTOMATION CONSULTANT-PURLER, BRIAN Attending Unavailabl e BALTES AUTOMATION CONSULTANT-PURLER, BRIAN Primary Care Unavailabl e BALTES AUTOMATION CONSULTANT-PURLER, BRIAN Attending Unavailabl e BALTES AUTOMATION CONSULTANT-PURLER, BRIAN Primary Care Unavailabl e Care Physician, No Primary Primary Care Provider Unavailable Dr. Reyes Sewell DO Attending Provider Shayy FILLING OPERATOR-C, Brian Primary Care Provider Shayy FILLING OPERATOR-C, Brian Referring Provider Mateusz LOVE, Dr. Allen Attending Provider Brian [...] Date: 09/01/24 Status: Ordered Repeat number: 1 [id number] 200 actuat albuterol 0.09 mg/actuat metered dose [...] arnoldo th once daily. polyethylene glycol 3350 88308 mg powder for oral solution (3 sources) [...] Onset: 11-16-2024 11-01-2024 Chronic Congestive heart failure; Comment on above: Performed By: #### L 500.2500, L100.0100 #### [facility] [address] [place], [address] Monocyte percentageOrdered B y: Reyes Sewell on 08-26-2024 Monocytes/100 WBC (Bld) 6.7 % Normal 0-10 [facility] Comment on above: Performed By: #### L 500.2500, L100.0100 #### [facility] [address] [place], [address] Neutrophil percentageOrdered By: Reyes Sewell on 08-26-2024 Neutrophils/100 WBC (Bld) 73.2 % High 47-70 [facility] Comment on above: Performed By: #### L 500.2500, L100.0100 #### [facility] [address] [place], [address] Nucleated red blood cell per centageOrdered By: Reyes Sewell on 08-26-2024 Nucleated RBC/100 WBC (Bld) [Ratio] 0 % 0-5 [facility] Platelet countOrdered By: Rogelio Sewell on 08-26-2024 Platelets (Bld) [#/Vol] 376 10*3/uL Normal 150-450 [facility] Comment on above: Performed By: #### L 500.2500, L100.0100 #### [facility] [address] [place], [address] Potassium measurement (mass/ volume)Ordered By: Reyes Sewell on 08-26-2024 Potassium (Unsp spec) [Mass/Vol] 4.0 mmol/L 3.3-5.1 [facility] Serum creatinine measurement (mass/volume)Ordered By: Reyes Sewell on 08-26-2024 Creatinine [Mass/Vol] 0.96 mg/dL Normal 0.70-1.20 [facility] Comment on above: Performed By: #### L 500.2500, L100.0100 #### [facility] [address] [place], [address] Serum glucose measurement (m ass/volume)Ordered By: Reyes Sewell on 08-26-2024 Glucose [Mass/Vol] 97 mg/dL Normal 70-99 [facility] Comment on above: Performed By: #### L 500.2500, L100.0100 #### [facility] [address] [place], [address] Serum or plasma calcium heather urement (mass/volume)Ordered By: Reyes Sewell on 08-26-2024 Calcium [Mass/Vol] 9.9 mg/dL Normal 7.6-11.0 [facility] Comment on above: Performed By: #### L 500.2500, L100.0100 #### [facility] [address] [place], [address] Serum or plasma urea nitroge n measurement (mass/volume)Ordered By: Reyes Sewell on 08-26-2024 Urea nitrogen [Mass/Vol] 12 mg/dL Normal 4-19 [facility] Comment on above: Performed By: #### L 500.2500, L100.0100 #### [facility] [address] [place], [address] Sodium levelOrdered By: Reyes Sewell on 08-26-2024 Sodium [Moles/Vol] 136 mmol/L Normal 133-145 [facility] Comment on above: Performed By: #### L 500.2500, L100.0100 #### [facility] [address] [place], [address] White blood cell (WBC) count Ordered By: Reyes Sewell on 08-26-2024 WBC (Bld) [#/Vol] 9.4 10*3/uL Normal 4.4-11.0 [facility] Comment on above: Performed By: #### L 500.2500, L100.0100 #### [facility] [address] [place], [address] 12 Lead EKGon 07-02-2024 12 Lead EKG [facility] Cardiovascular Services [address] [place] [address] 12 Lead EKG 07/02/24 1350 MR#: [id number] Acct: [id number] Name: WENDI GRAHAM Rep #: [id number] : 1970 54 From: Efraín Bhakta MD [...] ECG Confirmed by NELLA LOVE, EFRAÍN ([id number]), non linear editor OLAMIDE BARTON ([id number]) on 07/05/2024 8:41:59 AM Referred By: Henry Wilson Confirmed By: EFRAÍN BHAKTA MD 07/05/24 0842 Date Efraín Bhakta MD CC: Dr. Henry Wilson MD; No Primary Care Physician Signed Normal [facility] Absolute lymphocyte countOrd ered By: Henry Wilson on 07-02-2024 Lymphocytes Auto (Unsp spec) [#/Vol] 1.64 10*3/uL 0.83-4.51 [facility] Absolute neutrophil countOrd ered By: Henry Wilson on 07-02-2024 Neutrophils (Bld) [#/Vol] 11.3 10*3/uL High 2.0-7.7 [facility] Anion gap in Serum or Plasma Ordered By: Henry Wilson on 07-02-2024 Anion gap [Moles/Vol] 10 mmol/L 5-15 [facility] Automated lymphocyte count a s percentage of total leukocytesOrdered By: Henry Wilson on 07-02-2024 Lymphocytes/100 WBC Auto (Unsp spec) 11.5 % Low - [facility] BUN/creatinine ratioOrdered By: Henry Wilson on 07-02-2024 Urea nitrogen/Creatinine [Mass ratio] 14.1 mg/mg - [facility] Basic Metabolic Profile (BMP )on 07-02-2024 BUN/CRE 14.1 RATIO Normal - [facility] Comment on above: Performed By: #### L 100.0100, L500.2500 #### [facility] [address] [place], [address] Calcium [Mass/Vol] 9.7 mg/dL Normal 7.6-11.0 [facility] Comment on above: Performed By: #### L 100.0100, L500.2500 #### [facility] [address] [place], [address] Chloride [Moles/Vol] 102 mmol/L Normal 98-108 [facility] Comment on above: Performed By: #### L 100.0100, L500.2500 #### [facility] [address] [place], [address] CO2 [Moles/Vol] 26.0 mmol/L Normal 21.0-32.0 [facility] Comment on above: Performed By: #### L 100.0100, L500.2500 #### [facility] [address] [place], [address] Creatinine [Mass/Vol] 0.99 mg/dL Normal 0.70-1.20 [facility] Comment on above: Performed By: #### L 100.0100, L500.2500 #### [facility] [address] [place], [address] ECRCL 89.10 ml/min Normal 50-250 [facility] Comment on above: Performed By: #### L 100.0100, L500.2500 #### [facility] [address] [place], [address] GAP 10 Normal 5-15 [facility] Comment on above: Performed By: #### L 100.0100, L500.2500 #### [facility] [address] [place], [address] GFR/1.73 sq M.predicted among non-blacks MDRD (S/P/Bld) [Vol rate/Area] 91 mL/min/{1.73_m2} Normal >60 [facility] Comment on above: Result Comment: mL/m in/1.73m2 CKD-EPI Creatinine Equation (2020) Performed By: #### L 100.0100, L500.2500 #### [facility] [address] [place], [address] Glucose [Mass/Vol] 109 mg/dL High 70-99 [facility] Comment on above: Performed By: #### L 100.0100, L500.2500 #### [facility] [address] [place], [address] Potassium [Moles/Vol] 4.1 mmol/L Normal 3.3-5.1 [facility] Comment on above: Performed By: #### L 100.0100, L500.2500 #### [facility] [address] [place], [address] Sodium [Moles/Vol] 138 mmol/L Normal 133-145 [facility] Comment on above: Performed By: #### L 100.0100, L500.2500 #### [facility] [address] [place], [address] Urea nitrogen [Mass/Vol] 14 mg/dL Normal 4-19 [facility] Comment on above: Performed By: #### L 100.0100, L500.2500 #### [facility] [address] [place], [address] Basophil percentageOrdered B y: Henry Wilson on 07-02-2024 Basophils/100 WBC (Bld) 0.5 % 0-1 [facility] CBC W/Diff, Automatedon 06-15 Absolute Lymph 1.64 X10 3/uL Normal 0.83-4.51 [facility] Comment on above: Performed By: #### L 100.0100, L500.2500 #### [facility] [address] [place], [address] Absolute Neut 11.3 X10 3/uL High 2.0-7.7 [facility] Comment on above: Performed By: #### L 100.0100, L500.2500 #### [facility] [address] [place], [address] Basophils/100 WBC (Bld) 0.5 % Normal 0-1 [facility] Comment on above: Performed By: #### L 100.0100, L500.2500 #### [facility] [address] [place], [address] Eosinophils/100 WBC (Bld) 2.4 % Normal 0-5 [facility] Comment on above: Performed By: #### L 100.0100, L500.2500 #### [facility] [address] [place], [address] Erythrocyte distribution width (RBC) [Ratio] 13.4 % Normal 11.6-14.6 [facility] Comment on above: Performed By: #### L 100.0100, L500.2500 #### [facility] [address] [place], [address] Hematocrit (Bld) [Volume fraction] 45.1 % Normal 40-54 [facility] Comment on above: Performed By: #### L 100.0100, L500.2500 #### [facility] [address] [place], [address] Hemoglobin (Bld) [Mass/Vol] 15.0 g/dL Normal 13.0-16.5 [facility] Comment on above: Performed By: #### L 100.0100, L500.2500 #### [facility] [address] [place], [address] IG% 0.300 Normal 0.0-0.9 [facility] Comment on above: Result Comment: IG% - Immature Granulocytes (promyelocytes, myelocytes and metamyelocytes) > 1% indicates that a LEFT SHIFT is Present. Performed By: #### L 100.0100, L500.2500 #### [facility] [address] [place], [address] Lymphocytes/100 WBC (Bld) 11.5 % Low 19-41 [facility] Comment on above: Performed By: #### L 100.0100, L500.2500 #### [facility] [address] [place], [address] MCH (RBC) [Entitic mass] 28.4 pg Normal 27.0-32.0 [facility] Comment on above: Performed By: #### L 100.0100, L500.2500 #### [facility] [address] [place], [address] MCHC (RBC) [Mass/Vol] 33.3 g/dL Normal 32-36 [facility] Comment on above: Performed By: #### L 100.0100, L500.2500 #### [facility] [address] [place], [address] MCV (RBC) [Entitic vol] 85.4 fL Normal 80-94 [facility] Comment on above: Performed By: #### L 100.0100, L500.2500 #### [facility] [address] [place], [address] Monocytes/100 WBC (Bld) 6.4 % Normal 0-10 [facility] Comment on above: Performed By: #### L 100.0100, L500.2500 #### [facility] [address] [place], [address] Neutrophils/100 WBC (Bld) 78.9 % High 47-70 [facility] Comment on above: Performed By: #### L 100.0100, L500.2500 #### [facility] [address] [place], [address] Nucleated RBC (Bld) [#/Vol] 0 10*3/uL Normal 0-5 [facility] Comment on above: Performed By: #### L 100.0100, L500.2500 #### [facility] [address] [place], [address] Platelet mean volume (Bld) [Entitic vol] 9.0 fL Normal 6.2-12.0 [facility] Comment on above: Performed By: #### L 100.0100, L500.2500 #### [facility] [address] [place], [address] Platelets (Bld) [#/Vol] 403 10*3/uL Normal 150-450 [facility] Comment on above: Performed By: #### L 100.0100, L500.2500 #### [facility] [address] [place], [address] RBC (Bld) [#/Vol] 5.28 10*6/uL Normal 4.6-6.2 [facility] Comment on above: Performed By: #### L 100.0100, L500.2500 #### [facility] [address] [place], [address] RDW SD 42.3 fl Normal 35.1-43.9 [facility] Comment on above: Performed By: #### L 100.0100, L500.2500 #### [facility] [address] [place], [address] WBC (Bld) [#/Vol] 14.3 10*3/uL High 4.4-11.0 [facility] Comment on above: Performed By: #### L 100.0100, L500.2500 #### [facility] [address] [place], [address] Carbon dioxide, total [Moles /volume] in Central venous bloodOrdered By: Henry Wilson on 07-02-2024 CO2 [Moles/Vol] 26.0 mmol/L 21.0-32.0 [facility] Chloride assayOrdered By: Leopoldo Wilson on 07-02-2024 Chloride [Moles/Vol] 102 mmol/L 98-108 [facility] Emergency Department Summary on 07-02-[address] [facility] Records Department [address] [place] [address] Emergency Department Summary 07/02/24 MR#: [id number] Acct: [id number] Name: WENDI GRAHAM Rep #: [id number] : 1970 54 From: Henry Wilson MD [...] wheezes o (more content not included)... Normal [facility] Eosinophil percentageOrdered By: Henry Wilson on 07-02-2024 Eosinophils/100 WBC (Bld) 2.4 % 0-5 [facility] Erythrocyte distribution wid th (RBC) [Ratio]Ordered By: Henry Wilson on 07-02-2024 Erythrocyte distribution width (RBC) [Entitic vol] 42.3 fL 35.1-43.9 [facility] Erythrocyte distribution wid th ratioOrdered By: Henry Wilson on 07-02-2024 Erythrocyte distribution width (RBC) [Ratio] 13.4 % 11.6-14.6 [facility] Erythrocyte distribution wid th standard deviationOrdered By: Henry Wilson on 07-02-2024 Erythrocyte distribution width (RBC) [Ratio] 42.3 fl 35.1-43.9 [facility] Estimation of creatinine sharifa aranceOrdered By: Henry Wilson on 07-02-2024 Estimated Creatinine Clearance Calc 89.10 ml/min 50-250 [facility] GFR/1.73 sq M.predicted stacey g non-blacks MDRD (S/P/Bld) [Vol rate/Area]Ordered By: Henry Wilson on 07-02-2024 Estimated GFR (MDRD) Non-Af Amer 91 >60 [facility] Comment on above: mL/min/1.73m2 CKD-EP I Creatinine Equation (2020) Glomerular filtration rate ( GFR) estimation/1.73 sq m using serum, plasma, or whole bOrdered By: Henry Wilson on 07-02-2024 GFR/1.73 sq M.predicted among non-blacks MDRD (S/P/Bld) [Vol rate/Area] 91 mL/min/{1.73_m2} >60 [facility] Comment on above: mL/min/1.73m2 CKD-EP I Creatinine Equation (2020) Hematocrit Auto (Bld) [Volum e fraction]Ordered By: Henry Wilson on 07-02-2024 Hematocrit (Bld) [Volume fraction] 45.1 % 40-54 [facility] Hemoglobin measurementOrdere d By: Henry Wilson on 07-02-2024 Hemoglobin (Bld) [Mass/Vol] 15.0 g/dL 13.0-16.5 [facility] Immature granulocytes/100 WB C Auto (Bld)Ordered By: Henry Wilson on 07-02-2024 Immature granulocytes/100 WBC (Bld) 0.300 % 0.0-0.9 [facility] Comment on above: IG% - Immature Granu locytes (promyelocytes, myelocytes and metamyelocytes) > 1% indicates that a LEFT SHIFT is Present. Lymphocytes Auto (Unsp spec) [#/Vol]Ordered By: Henry Wilson on 07-02-2024 Lymphocytes (Bld) [#/Vol] 1.64 10*3/uL 0.83-4.5 1 [facility] Lymphocytes/100 WBC Auto (Un sp spec)Ordered By: Henry Wilson on 07-02-2024 Lymphocytes/100 WBC (Bld) 11.5 % Low 19-41 [facility] MCV (mean corpuscular volume ) determinationOrdered By: Henry Wilson on 07-02-2024 MCV (RBC) [Entitic vol] 85.4 fL 80-94 [facility] Mean corpuscular hemoglobin (MCH) determinationOrdered By: Henry Wilson on 07-02-2024 MCH (RBC) [Entitic mass] 28.4 pg 27.0-32.0 [facility] Mean corpuscular hemoglobin concentration (MCHC) determinationOrdered By: Henry Wilson on 07-02-2024 MCHC (RBC) [Mass/Vol] 33.3 g/dL 32-36 [facility] Mean platelet volume determi nationOrdered By: Henry Wilson on 07-02-2024 Platelet mean volume (Bld) [Entitic vol] 9.0 fL 6.2-12.0 [facility] Monocyte percentageOrdered B y: Henry Wilson on 07-02-2024 Monocytes/100 WBC (Bld) 6.4 % 0-10 [facility] Neutrophil percentageOrdered By: Henry Wilson on 07-02-2024 Neutrophils/100 WBC (Bld) 78.9 % High 47-70 [facility] Nucleated red blood cell per centageOrdered By: Henry Wilson on 07-02-2024 Nucleated RBC/100 WBC (Bld) [Ratio] 0 % 0-5 [facility] Platelet countOrdered By: Leopoldo Wilson on 07-02-2024 Platelets (Bld) [#/Vol] 403 10*3/uL 150-450 [facility] Potassium (Unsp spec) [Mass/ Vol]Ordered By: Henry Wilson on 07-02-2024 Potassium [Moles/Vol] 4.1 mmol/L 3.3-5.1 [facility] Potassium measurement (mass/ volume)Ordered By: Henry Wilson on 07-02-2024 Potassium (Unsp spec) [Mass/Vol] 4.1 mmol/L 3.3-5.1 [facility] RBC Auto (Bld) [#/Vol]Ordere d By: Henry Wilson on 07-02-2024 RBC (Bld) [#/Vol] 5.28 10*6/uL 4.6-6.2 [facility] Serum creatinine measurement (mass/volume)Ordered By: Henry Wilson on 07-02-2024 Creatinine [Mass/Vol] 0.99 mg/dL 0.70-1.20 [facility] Serum glucose measurement (m ass/volume)Ordered By: Henry Wilson on 07-02-2024 Glucose [Mass/Vol] 109 mg/dL High 70-99 [facility] Serum or plasma calcium heather urement (mass/volume)Ordered By: Henry Wilson on 07-02-2024 Calcium [Mass/Vol] 9.7 mg/dL 7.6-11.0 [facility] Serum or plasma urea nitroge n measurement (mass/volume)Ordered By: Henry Wilson on 07-02-2024 Urea nitrogen [Mass/Vol] 14 mg/dL 4-19 [facility] Sodium levelOrdered By: Henry Wilson on 07-02-2024 Sodium [Moles/Vol] 138 mmol/L 133-145 [facility] Venous Duplex US, Unilateral on 07-02-2024 Venous Duplex US, Unilateral [facility] [address] [place] [address] Venous Duplex US, Unilateral 07/02/24 1320 MR#: [id number] Acct: [id number] Name: WENDI GRAHAM Rep #: [id number] : 1970 54 From: Nicholas Huerta MD [...] Ordering Physician: Henry Wilson Performed By: Collette Moyer, T 07/02/242011 Date Nicholas Huerta MD CC: Dr. Henry Wilson MD; No Primary Care Physician Date Dictated: 07/02/24 1320 Date Transcribed: 07/02/242011 Drafter Chief Design: Signed Normal [facility] White blood cell (WBC) count Ordered By: Henry Wilson on 07-02-2024 WBC (Bld) [#/Vol] 14.3 10*3/uL High 4.4-11.0 [facility] CNOVon 05-05-2023 CNOV Office Visit (UCWSTR) ---- Aaron GRAHAM ([id number]) 1970 M Date Time Provider Department 05/05/23 10:00 AM FREDDY HENRY [facility] During your visit today, we recorded the following information about you: Temperature Pulse Respiration Blood pressure 97.6 degrees 116/minute 16/minute 110/80 Weight 80.6 kg Freddy Henry PA-C 05/05/2023 10:38 AM Signed This note was created using NoteWriter. Kiersten Aaron Graham is a 53 year old male. [...] Status:Closed by FREDDY HENRY on 05/05/23 Normal [facility] EMERGENCY REPORTon 05 7 EMERGENCY REPORT [facility] EMERGENCY ROOM REPORT NAME NUMBER SEX AGE ADMIT DISC TYPE MED.RECORD# ROCK WENDI Walker [id number] M 47 02/12/17 02/12/17 BooneBrunilda [id number] ROOM:[facility] DATE OF :1970 PHYSICIAN NO.:[id number] PHYSICIAN NAME:FRANCA Ruiz M.D. PHYSICIAN:NO DOCTOR FAMILY [...] follow up with his family doctor or [facility] in 3-5 days if no better. Return if symptoms worsen. D: Dennys Ruiz MD TD: 12:40 JOB #: [id number] Electronically signed by: Not Currently Signed Transcribed by: dung 02/12/2017 14:33 EMERGENCY ROOM REPORT ROCK WENDI Walker 1 Normal Rom[facility] EMERGENCY REPORTon 7 EMERGENCY REPORT [facility] EMERGENCY ROOM REPORT NAME NUMBER SEX AGE ADMIT DISC TYPE MED.RECORD# WENDI GRAHAM [id number] M 46 11/28/2016 11/28/2016 ETierraBrunilda [id number] ROOM:ER DATE OF :1970 PHYSICIAN NO.:[id number] PHYSICIAN NAME: PHYSICIAN:Keny Rodriguez CHIEF COMPLAINT: Concern [...] given a referral to follow up with [facility]. DIAGNOSIS: Second-degree larson to the left ring finger with secondary cellulitis. PLAN/DISPOSITION: The patient was discharged home in stable and satisfactory condition. D: Keny Rodriguez TD: 11/29/2016 12:50:55 JOB #: [id number] Keny Rodriguez D.O. Emergency Department 12/19/16 07:31 EMERGENCY ROOM REPORT ROCK KATERISHABH Walker 1 [facility] EMERGENCY ROOM REPORT NAME NUMBER SEX AGE ADMIT DISC TYPE MED.RECORD# WENDI GRAHAM [id number] M 46 11/28/2016 11/28/2016 ChristopherRBrunilda [id number] ROOM:ER DATE OF :1970 PHYSICIAN NO.:[id number] PHYSICIAN NAME: PHYSICIAN:Keny Rodriguez Transcribed by: PAOAL 11/29/2016 12:50:55 Copy for: MICHAEL HAMMOND DO Copy for: NO DOCTOR ON ADMISSION SHEET EMERGENCY ROOM REPORT WENDI GRAHAM 2 Normal [facility] EMERGENCY REPORTon 7 EMERGENCY REPORT [facility] EMERGENCY ROOM REPORT NAME NUMBER SEX AGE ADMIT DISC TYPE MED.RECORD# WENDI GRAHAM [id number] M 46 12/03/2016 12/03/2016 E.RBrunilda [id number] ROOM:ER DATE OF :1970 PHYSICIAN NO.: PHYSICIAN [...] GILBERT FOSS TD: 12/03/2016 15:47:36 JOB #: [id number] Gilbert Foss D.O. Emergency Department 12/06/16 11:54 Transcribed by: NMT 12/03/2016 15:47:36 Copy for: PIPO Pavon III Copy for: NO DOCTOR ON ADMISSION SHEET EMERGENCY ROOM REPORT ROCK YVONNEANGELA Walker 1 Normal [facility] EMERGENCY REPORTon 10-04-201 7 EMERGENCY REPORT [facility] EMERGENCY ROOM REPORT NAME NUMBER SEX AGE ADMIT DISC TYPE MED.RECORD# WENDI GRAHAM [id number] M 46 09/26/2016 09/26/2016 Chiki [id number] ROOM:ER DATE OF :1970 PHYSICIAN NO.:[id number] PHYSICIAN NAME: PHYSICIAN:Keny Rodriguez Patient was seen [...] to the pain. He has been taking [id number] Tylenol and ibuprofen for his pain. He [...] He was subsequently provided a prescription for [place] for pain after obtaining an OARRS report. He was provided a work note, as well. He was given a referral to follow up with [facility] and provided the phone number to follow up within a week. DIAGNOSES: 1. Left posterior chest wall contusion. 2. Superficial abrasion. PLAN/DISPOSITION: Patient was discharged home in stable and satisfactory condition. D: Keny Rodriguez TD: 09/26/2016 11:27:28 EMERGENCY ROOM REPORT WENDI GRAHAM 1 [facility] EMERGENCY ROOM REPORT NAME NUMBER SEX AGE ADMIT DISC TYPE MED.RECORD# WENDI GRAHAM [id number] M 46 09/26/2016 09/26/2016 E.RBrunilda [id number] ROOM:ER DATE OF :1970 PHYSICIAN NO.:[id number] PHYSICIAN NAME: PHYSICIAN:Keny Rodriguez JOB #: [id number] Keny Rodriguez D.O. Emergency Department 10/04/16 03:06 Transcribed by: PAOLA 09/26/2016 11:27:28 Copy for: MICHAEL HAMMOND DO Copy for: NO DOCTOR ON ADMISSION SHEET EMERGENCY ROOM REPORT WENDI GRAHAM 2 Normal [facility] CHEST PA/LATon 09-26-2016 CHEST PA/LAT [place] [address] Patient: WENDI GRAHAM. Phone#: : [phone] Age: 46 Gender: M Pt. Type: ER Account: [id number] Location: [id number] Ordering: KENY RODRIGUEZ Exam Date: 09/26/2016/10:42 Family Phys: NO DOCTOR Charge Code: [id number] Physician: Pike Order #: [id number] DLP Dose#: PROCEDURE: X-RAY CHEST PA/LAT 2 VIEWS COMPARISON: [facility], XR, CHEST PA/LAT, 11/19/2012, 13:45. INDICATIONS: [...] MD on 09/26/2016 at 10:58 Approved by: Linentte Garcia MD on 09/26/2016 at 10:58 Normal [facility] RIBS LT UNILAT W/CHEST EXPIR ATIONon 09-26-2016 RIBS LT UNILAT W/CHEST EXPIRATION [address] [address] Patient: WENDI GRAHAM Phone#: : 1970 Age: 46 Gender: M Pt. Type: ER Account: [id number] Location: [facility] Ordering: KENY RODRIGUEZ Exam Date: 09/26/2016/10:38 Family Phys: NO DOCTOR Charge Code: 139087 Physician: Pike Order #: [id number] DLP Dose#: PROCEDURE: X-RAY RIBS LT UNILAT [...] Garcia MD on 09/26/2016 at 10:59 Normal [facility] Vital Signs Date Time Vital Sign Value Performing Clinician Facility 11-16-2024 10:06-0400 Body height 177.8 cm No Primary Care Physician [facility] 11-16-2024 10:06-0400 Body mass index (BMI) [Ratio] 22.6 kg/m2 No Primary Care Physician [facility] 11-16-2024 10:06-0400 Body weight 71.66 kg No Primary Care Physician [facility] 11-16-2024 10:06-0400 Diastolic blood pressure 70 mm[Hg] No Primary Care Physician [facility] 11-16-2024 10:06-0400 Heart rate 83 /min No Primary Care Physician [facility] 11-16-2024 10:06-0400 Respiratory rate 18 /min No Primary Care Physician [facility] 11-16-2024 10:06-0400 Systolic blood pressure 113 mm[Hg] No Primary Care Physician [facility] 08-26-2024 20:34-0400 Body temperature 98 [degF] No Primary Care Physician [facility] 08-26-2024 20:34-0400 Diastolic blood pressure 79 mm[Hg] No Primary Care Physician [facility] 08-26-2024 20:34-0400 Heart rate 70 /min No Primary Care Physician [facility] 08-26-2024 20:34-0400 Respiratory rate 18 /min No Primary Care Physician [facility] 08-26-2024 20:34-0400 SaO2% (BldA) [Mass fraction] 100 % No Primary Care Physician [facility] 08-26-2024 20:34-0400 Systolic blood pressure 132 mm[Hg] No Primary Care Physician [facility] 08-26-2024 17:02-0400 Body height 177.8 cm No Primary Care Physician [facility] 08-26-2024 17:02-0400 Body mass index (BMI) [Ratio] 22.8 kg/m2 No Primary Care Physician [facility] 08-26-2024 17:02-0400 Body weight 72.23 kg No Primary Care Physician [facility] 07-02-2024 12:51-0400 Body height 177.8 cm No Primary Care Physician [facility] 07-02-2024 12:51-0400 Body mass index (BMI) [Ratio] 23.6 kg/m2 No Primary Care Physician [facility] 07-02-2024 12:51-0400 Body temperature 96.8 [degF] No Primary Care Physician [facility] 07-02-2024 12:51-0400 Body weight 74.84 kg No Primary Care Physician [facility] 07-02-2024 12:51-0400 Diastolic blood pressure 84 mm[Hg] No Primary Care Physician [facility] 07-02-2024 12:51-0400 Heart rate 109 /min No Primary Care Physician [facility] 07-02-2024 12:51-0400 Respiratory rate 15 /min No Primary Care Physician [facility] 07-02-2024 12:51-0400 SaO2% (BldA) [Mass fraction] 99 % No Primary Care Physician [facility] 07-02-2024 12:51-0400 Systolic blood pressure 148 mm[Hg] No Primary Care Physician [facility] 05-05-2023 10:03-0500 Body temperature 97.59 [degF] Freddy Athy PA-C Work Phone: [facility] 05-05-2023 10:03-0500 Body weight 80.56 kg Freddy Athy PA-C Work Phone: [facility] 05-05-2023 10:03-0500 Diastolic blood pressure 80 mm[Hg] Freddy Athy PA-C Work Phone: [facility] 05-05-2023 10:03-0500 Heart rate 116 /min Freddy Athy PA-C Work Phone: [facility] 05-05-2023 10:03-0500 Respiratory rate 16 /min Freddy Athy PA-C Work Phone: [facility] 05-05-2023 10:03-0500 SaO2% (BldA) [Mass fraction] 100 % Freddy Athy PA-C Work Phone: [facility] 05-05-2023 10:03-0500 Systolic blood pressure 110 mm[Hg] Freddy Athy PA-C Work Phone: [facility] Encounters Encounter Date Encounter Type Care Provider Facility [facility]: [facility] Start: 02-07-2025 ambulatory Tiffany Child Facility:[facility] Start: 02-02-2025 ambulatory [facility] Facility:[facility] Start: 12-28-2024 ambulatory [facility] Facility:[facility] Start: 11-16-2024 End: 11-16-[address] Tiffany Child MD -[facility] Work Phone: Start: 11-16-2024 End: 11-16-2024 ambulatory No Primary Care Physician -[facility] Start: 09-21-2024 End: 09-21-2024 ambulatory BRIAN LUCAS AUTOMATION CONSULTANT-PURLER Facility:[facility] Start: 09-21-2024 End: 09-21-2024 Patient encounter procedure BRIAN LUCAS APRN-PURLER [facility] Start: 09-16-2024 End: 09-16-2024 ambulatory BRIAN LUCAS AUTOMATION CONSULTANT-PURLER Facility:A Start: 09-16-2024 End: 09-16-2024 Patient encounter procedure BRIAN LUCAS APRN-PURLER [facility] Start: 08-26-2024 End: 08-26-2024 Emergency department patient visit No Primary Care Physician -Emer[facility] Department Work Phone: Start: 07-02-2024 End: 07-02-2024 Emergency department patient visit No Primary Care Physician -Emergency Department Work Phone: Start: 05-05-2023 End: 05-05-2023 ambulatory Facility:[facility] Start: 05-05-2023 End: 05-05-2023 Patient encounter procedure Freddy Henry PA-C Work Phone: [facility] Comment on above: Folliculitis (Primar y Dx) Start: 02-12-2017 End: 02-12-2017 Emergency department patient visit DENNYS RUIZ [facility] Start: 12-03-2016 End: 12-03-2016 Emergency department patient visit GILBERT FOSS [facility] Start: 11-28-2016 End: 11-28-2016 Emergency department patient visit KENY GARCIA [facility] Start: 09-26-2016 End: 09-26-2016 Emergency department patient visit KENY GARCIA [facility] Procedures Date Procedure Procedure Detail Performing Clinician Start: 08-26-2024 Estimated creatinine clearance No Primary Care Physician Start: 08-26-2024 Blood culture No Primar y Care Physician Start: 07-02-2024 Estimated creatinine clearance No Primary Care Physician Plan of Treatment Date Care Activity Detail Author Start: 11-16-2024 Evaluation of diagnostic study results [facility] Start: 08-26-2024 End: 08-26-2024 [facility] Start: 08-26-2024 Bacteria identified in Blood by Culture Blood Culture [facility] Start: 07-02-2024 [facility] Start: 03-17-2023 Depression Assessment Depression Assessment [facility] Start: 11-15-2022 Influenza vaccination Influenza Vaccine (#1) [facility] Start: 2021 Shingrix Vaccine (1 of 2) Shingrix Vaccine (1 of 2) [facility] Start: 01-07-2016 Diabetes Screening Diabetes Screening [facility] Start: 01-07-2016 Screening for malignant neoplasm of colon [facility] Start: 2006 Lipid panel Lipid Screening [facility] Start: 1990 Urine microalbumin profile DTaP,Tdap,Td Vaccine (1 - Tdap) [facility] Start: 1989 Hepatitis C screening Hepatitis C Screening [facility] Start: 1989 HIV screening HIV Screening [facility] Start: 1977 Pneumococcal vaccination Pneumococcal Vaccine (1 of 2 - PCV) [facility] Start: 1970 Covid-19 Vaccine (#1) Covid-19 Vaccine (#1) [facility] Start: 1970 Hepatitis B Vaccine (1 of 3 - 3-dose series) Hepatitis B Vaccine (1 of 3 - 3-dose series) [facility] Comprehensive metabo lic 1999 panel - Serum or Plasma [facility] CT for calcium scori ng WO contrast and CTA W contrast IV Heart and coronary arteries [facility] Lipid 1996 panel - S rhett or Plasma [facility] Patient Education ED Cellulitis [facility] Work Phone: Patient referral [facility] Work Phone: Heart [facility] Payers Date Payer Category Payer Medicaid [id number] 2024 Medicaid [id number] 2024 Self-pay 1970 Unknown [id number] 2.16. [id number] 1970 Unknown [id number] 2.16. [id number] Self-pay [id number] Unknown [id number] Unknown [id number] 2.16.8 [id number] Unknown [id number] 2.16.8 [id number] Unknown [id number] 2.16.8 [id number] Unknown [id number] 2.16.8 [id number] Unknown [id number] 2.16.8 [id number] Unknown [id number] 2.16.8 [id number] Unknown [id number] 2.16.8 [id number] Social History Date Type Detail Facility Start: 05-02-2014 End: 08-26-2024 Tobacco smoking status NMIS Smokes tobacco daily [facility] Work Phone: History of tobacco use Cigarette Smoker [facility] Work Phone: Start: 05-02-2014 End: 05-05-2023 Cigarettes smoked current (pack per day) - Reported 0.5 [facility] Start: 05-02-2014 Tobacco use and exposure Forme r smokeless tobacco user [facility] Work Phone: Start: 05-05-2023 Alcohol intake Current drinke r of alcohol (finding) [facility] Start: 05-05-2023 Tobacco use panel [facility] Start: 1970 Sex Assigned At Not on file C [facility] Start: 07-02-2024 Sex Male (finding) [facility] Start: 1970 Sex Assigned At Male [facility] Start: 09-01-2024 End: 11-01-2024 Tobacco smoking status Light tobacco smoker (finding) Benjamin Natarajan [facility] [place] Sexual Orientation [facility] Mental Status Date Assessment Result Facility 07-02-2024 Cognitive function Level Of Cons ciousness Awake;Alert;Appropriate;Follow s Commands [facility] Work Phone: Clinical Notes 05-05-2023 to 11-16-2024 Note Date & Type Note Facility 11-16-2024 Progress note [facility] 11-16-2024 Progress note Note Date/Time November 16, 2024 10:47am [facility] [address] [place], [place] [address] OFFICE VISIT Date of Service: 11/16/24 MR#: [id number] Acct: [id number] Name: WENDI GRAHAM Rep #: [id number] : 1970 Provider: Dr. Bipin Child MD Age/Sex: 54/M Location: [facility] Status: Signed HPI HPI History of Present [...] Source Monitor Intake Visit Reasons: HFrEF ([place]) Marketing Agent Required: No Accompanied by: Self Is patient [...] Date (if applicable) CC: ELKE Lucas ~ [facility] [employer] Work Phone: 1(141) 703-604507-03-2025 Note Date of Service Date: 09/16/2024 Procedure: [...] ELA ASHLEY MD on 09/16/2024 01:56 PM [id number] Note* Exam Date Time Procedure Performing Provider Status 09/16/24 10:31 AM NM Myocardial Spect Rest/Stress CAMRON GERBER MD; Auth (Verified) [id number] ORIGINAL NM MYOCARDIAL SPECT STRESS/REST CLINICAL STATEMENT: [...] AM Sign Date: 09/16/2024 1:39:38 PM Ordering Provider:[facility]07-03-2025 Note Date of Service Date: 09/16/2024 Procedure: [...] ELA ASHLEY MD on 09/16/2024 01:56 PM [id number] [facility] Medical Records Department [address] [place] [address] Emergency Department Summary 07/02/24 MR#: [id number] Acct: [id number] Name: WENDI GRAHAM Rep #:[id number] : 1970 54 From: Henry Wilson [...] Prior similar symptoms: No Recent Illness/Hospitalization: No [facility] Medical History Arrhythmia Home Medications ?Medication ?Instructions [...] extremity was negative. No DVT per the chemical radiation technician. CBC shows an elevated white count [...] 78.9 H Lymph % (Auto) 11.5 L [place] % (Auto) 6.4 Eos % (Auto) 2.4 [...] rhythm rate 81. No acute signs of MA or ischemia. No change from prior. Discharge [...] Referrals: Lul Dale MD [Med Staff - Textile Dyer] - As soon as possible Care Physician,No [...] Motrin and Tylenol for pain. Print Language: Taiwanese Disposition Disposition: Home, Self Care What to do if you have Problems For any increased pain, shortness of breath, bleeding, nausea or vomiting, chestpain, or any unexpected problems, contact your Primary Care Provider. Call [facility] ([phone]) or report tothe closest Emergency Room. Call 911 if necessary. 07/02/24 [id number] Cosigner Signature (if applicable): CC: No Primary Care Physician ~ Signed [facility]04-18-2025 Discharge summary Author Henry Wilson [facility] Note Date/Time July 02, 2024 2:5 9pm [facility] Medical Records Department [address] [place] [address] Emergency Department Summary 07/02/24 MR#: [id number] Acct: [id number] Name: WENDI GRAHAM Rep #:[id number] : 1970 54 From: Henry Wilson [...] extremity was negative. No DVT per the chemical radiation technician. CBC shows an elevated white count [...] 78.9 H Lymph % (Auto) 11.5 L [place] % (Auto) 6.4 Eos % (Auto) 2.4 [...] rhythm rate 81. No acute signs of MA or ischemia. No change from prior. Discharge [...] Referrals: Lul Dale MD [Med Staff - Textile Dyer] - As soon as possible Care Physician,No [...] Motrin and Tylenol for pain. Print Language: Taiwanese Disposition Disposition: Home, Self Care What to do if you have Problems For any increased pain, shortness of breath, bleeding, nausea or vomiting, chestpain, or any unexpected problems, contact your Primary Care Provider. Call [facility] ([phone]) or report to the closest Emergency Room. Call 911 if necessary. 07/02/24 [id number] <Electronically signed by Henry Wilson MD> Cosigner Signature (if applicable): CC: No Primary Care Physician ~ Signed [facility] Work Phone: 1(882) 998-534402-19-2024 NoteHNO ID: [id number] Author: FREDDY HENRY PA-C Service: ? Author Type: Physician Surface Boss Type: Progress Notes Filed: 05/05/2023 10:38 Note Text: This note was created using [employer]. Kiersten Graham is a 53 year old [...] Follow-up if not improving. Patient agreeable. [facility] History of Present illness Narrative* Freddy Henry PA-C - 05/05/2023 10:35 AM EST Images from the original note were not included. This note was created using [employer]. Kiersten Graham is a 53 year old [...] Follow-up if not improving. Patient agreeable. Freddy R Athy, PA-C [facility] Future Appointments Appointment Date:09/21/2024 10:00:00 AM Scheduled Provider: Location:[facility] Appointment Type:PF Complete PFT w/Bronchodilator Appointment Date:10/06/2024 10:00:00 AM Scheduled Provider:BRIAN LUCAS Location[facility] Appointment Type:[facility] Evaluation + Plan note Future Appointments Appointment Date:10/06/2024 10:00:00 AM Scheduled Provider:BRIAN LUCAS Location:[facility] Appointment Type:[facility] Evaluation note* Diagnosis Folliculitis- Primary Other specified disease of hair and hair follicles documented [facility] this [facility] noteNo assessment information availableWCherrington [facility] Work Phone: Evaluation note* Diagnosis Onset Date Resolution Status Admit Date Left ventricular systolic dysfunction (LVSD) acute November 9:53am Chest pain on exertion chronic Se ptember 2024 9:53am COPD (chronic obstructive pulmonary disease) chronic November 9:53am Nicotine dependence chronic 2024 9:53am [facility] Work Phone: Hospital course Narrative No data available for this section [facility] Hospital Discharge instructions Additional Instructions There is [...] feeling worse. Motrin and Tylenol for pain. [facility] Work Phone: Hospital Discharge instructions No data available for this section [facility] Progress note No data available for this section [facility] Reason for referral (narrative)No reason for referral information availableWCherrington Hospital Work Phone: Summary Purpose Family History No [...] Do you have a Healthcare Power of Store Custodian? No July 02, 2024 1:12pm Advance Directive Response Recorded Date/ Time Living Will No July 02, 2024 1:12pm Do you have a Healthcare Power of Store Custodian? No July 02, 2024 1:12pm Do you have a Healthcare Power of Store Custodian? Yes August 26, 2024 7:12pm Advance Directive Response Recorded Date/ Time Do you have a Healthcare Power of Store Custodian? Yes August 26, 2024 7:12pm Chief Complaint [...] 9:53am COPD (chronic obstructive pulmonary dise ase) November 16, 2024 9:53am Nicotine dependence November 16, 2024 9:53am Additional Source Comments (unrecognized sect ion and content) No Status Records FoundNo Status Records FoundNo Status Records FoundNo Status Records FoundNo Status Records Found INFORMATION SOURCE (unrecogn ized section and content) DATE CREATED AUTHOR 09/09/2017 Romario Corado [facility] DATE CREATED AUTHOR AUTHOR'S ORGANIZ ATION 05/05/2023 [facility] DATE CREATED AUTHOR AUTHOR'S ORGANIZ ATION 09/22/2024 [facility] DATE CREATED AUTHOR AUTHOR'S ORGANIZ ATION 10/16/2024 [facility] DATE CREATED AUTHOR AUTHOR'S ORGANIZ ATION 01/21/2025 [facility] Source Comments (unrecognize d section and content) In the event this informatio n is protected by the Federal Confidentiality of Alcohol and Drug Abuse Patient Records regulations: The Federal rules restrict any use of the information to criminally investigate or prosecute any alcohol or drug abuse patient.[facility] Reason for Visit (unrecogniz ed section and [...] 2024 End: July 02, 2024 Dr. Henry Wlison MD Referring Provider Active S tart: July [...] End: August 26, 2024 Dr. Reyes Sewell , Emergency Provider Active Start: August 26, 2024 End: August 26, 2024 Team Status: Active Member Role/Relationship Status Dates Brian Lucas FILLING OPERATOR, FILLING OPERATOR-C Primary Care Provider Active Team Status: Inactive Member Role/Relationship Status Dates No Primary Care Physician Primary Care Provider Active Start: August 26, 2024 End: August 26, 2024 Dr. Reyes Sewell , Attending Provider Active Start: August 26, 2024 End: August 26, 2024 Dr. Reyes Sewell , Emergency Provider Active Start: August 26, 2024 End: August 26, 2024 Team Status: Inactive Member Role/Relationship Status Dates Brian Lucas FILLING OPERATOR, FILLING OPERATOR-C Primary Care Provider Active Start: November 16, 2024 End: November 16, 2024 Brian Lucas NP, FILLING OPERATOR-C Referring Provider Active S tart: November 16, [...] BE BASED ON THE PRIMARY CLINICAL RECORDS. [employer] provides no warranty or guarantee of the accuracy or completeness of information in this document.
== END | disposition home or self-care (01) ==
PROVIDERS: PCP Nurse Practitioner Primary Care; Referring Provider Internal Medicine Cardiovascular Disease; Visit Provider Internal Medicine Cardiovascular Disease
DX: R07.9 Chest pain, unspecified (principal)
CPT/HCPCS: 93306; Q9957; A4216; C8929